=== PATIENT | male | born 1985 | race Caucasian/White ===

== ENCOUNTER 2016-05-25 10:34 | Inpatient (IN) | payer OTHER ==
[2016-05-25 13:05] VITALS: BMI 23.9
--- NOTE | 2016-05-25 14:20 | HP ---
CIWA Score - CIWA Score Nausea/Vomitin-Mild Nausea/No Vomiting Muscle Tremors: 4-Moderate,w/Arms Extend Anxiety: 3 Agitation: 4-Moderately Restless Paroxysmal Sweats: 3 Orientation: 0-Oriented Tacttile Disturbances: 0-None Auditory Disturbances: 0-None Visual Disturbances: 0-None Headache: 0-None Present CIWA-Ar Total Score: 15 Admission ROS BHS - HPI Chief Complaint: I am here to detox. Allergies/Adverse Reactions: Allergies Allergy/AdvReac Type Severity Reaction Status Date / Time No Known Allergies Allergy Verified 05/25/16 13:28 History of Present Illness: pt is a 31yr old male with a long history of benzodiazapine dependence seeking detox for treatment. Exam Limitations: No Limitations - Ebola screening Have you traveled outside of the country in the last 21 days: No Have you had contact with anyone from an Ebola affected area: No Have you been sick,other than usual withdrawal symptoms: No Do you have a fever: No - Review of Systems Constitutional: Chills, Night Sweats, Changes in sleep, Unintentional Wgt. Loss EENT: reports: Tearing, Nose Congestion Respiratory: reports: Cough, Productive cough Cardiac: reports: No Symptoms Reported GI: reports: Poor Appetite, Poor Fluid Intake : reports: No Symptoms Reported Musculoskeletal: reports: Back Pain Integumentary: reports: No Symptoms Reported Neuro: reports: Seizure (benzo related seizure a week ago.), Tingling, Tremors Endocrine: reports: Excessive Sweating, Flushing, Intolerance to Cold, Intolerance to Heat Hematology: reports: No Symptoms Reported Psychiatric: reports: Judgement Intact, Mood/Affect Appropiate, Orientated x3, Agitated, Anxious Other Systems: Reviewed and Negative Patient History - Patient Medical History Hx Anemia: No Hx Asthma: No Hx Chronic Obstructive Pulmonary Disease (COPD): No Hx Cancer: No Hx Cardiac Disorders: No Hx Congestive Heart Failure: No Hx Hypertension: No Hx Hypercholesterolemia: No Hx Pacemaker: No HX Cerebrovascular Accident: No Hx Seizures: Yes (xanax related seizures last in 06/21) Hx Dementia: No Hx Diabetes: No Hx Gastrointestinal Disorders: No Hx Liver Disease: No Hx Genitourinary Disorders: No Hx Sexually Transmitted Disorders: No Hx Renal Disease (ESRD): No Hx Thyroid Disease: No Hx Human Immunodeficiency Virus (HIV): No (negative) Hx Hepatitis C: No (negtive) Hx Depression: Yes Hx Suicide Attempt: No (denies) Hx Bipolar Disorder: Yes (Panic Disorder.) Hx Schizophrenia: No - Patient Surgical History Past Surgical History: Yes Hx Neurologic Surgery: No Hx Cataract Extraction: No Hx Cardiac Surgery: No Hx Lung Surgery: No Hx Breast Surgery: No Hx Breast Biopsy: No Hx Abdominal Surgery: No Hx Appendectomy: No Hx Cholecystectomy: No Hx Genitourinary Surgery: No Hx Section: No Hx Orthopedic Surgery: No Hx Hysterectomy: No Other Surgical History: right inguinal hernia repair in 2005, tonsillectomy Anesthesia Reaction: No - PPD History Previous Implant?: Yes Documented Results: Negative w/proof Implanted On Prior [facility] Admission?: Yes Date: 06/19/15 Results: 0 mm PPD to be Administered?: No - Reproductive History Patient is a Female of Child Bearing Age (11 -55 yrs old): No - Smoking Cessation Smoking history: Current every day smoker Have you smoked in the past 12 months: Yes Aproximately how many cigarettes per day: 20 Hx Chewing Tobacco Use: No Initiated information on smoking cessation: Yes 'Breaking Loose' booklet given: 05/25/16 - Substance & Tx. History Hx Alcohol Use: No Hx Substance Use: Yes Substance Use Type: Prescribed Hx Substance Use Treatment: Yes - Substances Abused Marijuana/Hashish Route: Smoking Frequency: Daily Amount used: 6 JOINTS Age of first use: 16 Date of Last Use: 05/25/16 KLONOPIN OR XANAX Route: Oral Frequency: Daily Amount used: 12-16MG Age of first use: 20 Date of Last Use: 05/24/16 Family Disease History - Family Disease History Family Disease History: CA: Mother (BREAST), Other: Father ( BRAIN ANEURYSM; ALCOHOL) Admission Physical Exam BHS - Vital Signs Vital Signs: Vital Signs - 24 hr 05/25/16 13:01 Temperature 98.1 F Pulse Rate 82 Respiratory 18 Rate Blood Pressure 104/74 - Physical General Appearance: Yes: Appropriately Dressed, Moderate Distress, Thin, Tremorous, Irritable, Sweating, Anxious HEENTM: Yes: Hearing grossly Normal, Normal Voice, Nasal Congestion Respiratory: Yes: Lungs Clear, Normal Breath Sounds Neck: Yes: No masses,lesions,Nodules Breast: Yes: Within Normal Limits Cardiology: Yes: Regular Rhythm, Regular Rate, S1, S2 Abdominal: Yes: Normal Bowel Sounds, Non Tender, Soft Genitourinary: Yes: Within Normal Limits Back: Yes: Normal Inspection Musculoskeletal: Yes: full range of Motion Extremities: Yes: Normal Capillary Refill, Normal Inspection, Non-Tender, Tremors Neurological: Yes: Fully Oriented, Alert, Normal Response Integumentary: Yes: Normal Color, Diaphoresis Lymphatic: Yes: Within Normal Limits - Diagnostic (1) Methadone maintenance therapy patient Current Visit: Yes Status: Chronic Comment: pt recieved methadone today with 90mg; dose verified. (2) Nicotine dependence Current Visit: Yes Status: Chronic Qualifiers: Nicotine product type: cigarettes Substance use status: uncomplicated Qualified Code(s): F17.210 - Nicotine dependence, cigarettes, uncomplicated (3) Uncomplicated sedative, hypnotic or anxiolytic withdrawal Current Visit: Yes Status: Chronic Cleared for Admission [facility] - Detox or Rehab [facility] Level of Care: Medically Managed Detox Regimen/Protocol: Valium [facility] Breath Alcohol Content Breath Alcohol Content: 0 Urine Drug Screen - Results Drug Screen Negative: No Urine Drug Screen Results: THC-Marijuana, OPI-Opiates, BZO-Benzodiazepines, TCA- Tricyclic Antidepress, OXY-Oxycodone
[2016-05-25] MEDS ORDERED: P-EPHED 60MG/TRIPROLIDI 2.5MG TABLET PO PRN (14:30)
[2016-05-25] MEDS ORDERED: MAG HYDROX/AL HYDROX/SIMETH 30 ML UNIT-DOSE CUP PO PRN (14:30)
[2016-05-25] MEDS ORDERED: NICOTINE POLACRILEX 4 MG GUM BUC PRN (14:30)
[2016-05-25] MEDS ORDERED: ACETAMINOPHEN 325 MG TABLET (FP) PO PRN (14:30)
[2016-05-25] MEDS ORDERED: LOPERAMIDE HCL 2 MG CAPSULE PO PRN (14:30)
[2016-05-25] MEDS ORDERED: diphenhydrAMINE HCL 50 MG CAPSULE PO PRN (14:30)
[2016-05-25] MEDS ORDERED: MENTHOL/PHENOL 1 EACH UD MM PRN (14:30)
[2016-05-25] MEDS ORDERED: MAGNESIUM HYDROX 2400MG/30ML ORAL SUSPENSION 30 ML CUP PO PRN (14:30)
[2016-05-25] MEDS ORDERED: MAGNESIUM CITRATE 300 ML BOTTLE PO PRN (14:30)
[2016-05-25] MEDS ORDERED: hydrOXYzine PAMOATE 50 MG CAPSULE (FP) PO PRN (14:30)
[2016-05-25] MEDS ORDERED: IBUPROFEN 400 MG TABLET (FP) PO PRN (14:30)
[2016-05-25] MEDS ORDERED: guaiFENesin/D-METHORPHAN HB 10 ML UNIT-DOSE CUPS PO PRN (14:30)
[2016-05-25] MEDS ORDERED: diazePAM 5 MG TABLET PO ONE (15:06)
[2016-05-25] MEDS: diazePAM 5 MG TABLET PO SCH ×2 (17:25→22:16)
[2016-05-25] MEDS: THIAMINE HCL 100 MG TABLET (FP) PO SCH (22:16)
[2016-05-25 22:38] LABS: URINE APPEARANCE CLEAR; URINE BILIRUBIN NEGATIVE (NEGATIVE); URINE BLOOD NEGATIVE (NEGATIVE); URINE COLOR AMBER; URINE GLUCOSE (UA) NEGATIVE (NEGATIVE); URINE KETONE NEGATIVE (NEGATIVE); URINE NITRITE NEGATIVE (NEGATIVE); URINE PROTEIN NEGATIVE (NEGATIVE); URINE UROBILINOGEN 2.0 E.U/dl E.U./dl (0.2-1.0)
[2016-05-25 22:41] LABS: URINE LEUK ESTERASE 1+ (NEGATIVE)
[2016-05-25 22:56] LABS: URINE MUCUS RARE; URINE RBC 16 /hpf (0-3); URINE WBC 4 /hpf (3-5)
[2016-05-26] MEDS ORDERED: METHADONE HCL 10 MG TABLET ONE (05:23)
[2016-05-26] MEDS ORDERED: METHADONE HCL 40 MG DISPERSABLE TABLET ONE (05:24)
[2016-05-26] MEDS: METHADONE 80 MG, METHADONE 10 MG PO SCH (05:43)
[2016-05-26] MEDS: diazePAM 5 MG TABLET PO SCH ×3 (05:43→22:04)
[2016-05-26] MEDS ORDERED: METHADONE HCL 10 MG TABLET PO SCH (06:00)
--- NOTE | 2016-05-26 08:40 | CONSULT ---
[facility] Psychiatric Consult - Data Date of interview: 05/26/16 Admission source: Self-referred Identifying data: Mr Simental is a 31 years old single male, unemployed , living with his grandparents seeking detox treatment for benzodiazepine( Klonopin & Xanax) and marijuana Substance Abuse History: - Smoking Cessation. Smoking history: Current every day smoker. Have you smoked in the past 12 months: Yes. Aproximately how many cigarettes per day: 20. Hx Chewing Tobacco Use: No. Initiated information on smoking cessation: Yes. 'Breaking Loose' booklet given: 05/25/16. - Substance & Tx. History. Hx Alcohol Use: No. Hx Substance Use: Yes. Substance Use Type : Prescribed. Hx Substance Use Treatment: Yes. - Substances Abused. Marijuana/Hashish. Route: Smoking. Frequency: Daily. Amount used: 6 JOINTS. Age of first use: 16. Date of Last Use: 05/25/16. KLONOPIN OR XANAX. Route : Oral. Frequency: Daily. Amount used: 12-16MG. Age of first use: 20. Date of Last Use: 05/24/16 Medical History: Significant for history of Sedative-Induced seizure, S/P right Inguinal Hernia repair in 2005 and S/P Tonsillectomy. Patient is on methadone 90 mg po daily. Smokes cigarettes 1ppd Psychiatric History: Reports being diagnosed with Bipolar Disorder at age 20 and has had 3 previous psychiatric hospitalizations. Most recent one was in 2011 at [facility]. Reports being prescribed Cymbalta 30mg po daily & Xanax 2 mg po TID when he was receiving psychiatric services in [place] before moving to [place] in early 2015. Since being in [place], he has seen psychiatrist during his 3 admissions to this facility in Jun, Dec & Feb 2016 and at [facility] in [facility] for outpatient treatment fro Jun-November 2015. In this facility, he was prescribed Ambien only during his Jun 2015 admission. Claims he was only receiving psychotherapy while attending [facility]. At present, reports feeling anxious and experiencing difficulty to sleep Mental Status Exam - Mental Status Exam Alert and Oriented to: Time, Place, Person Cognitive Function: Fair Patient Appearance: Well Groomed Mood: Anxious Affect: Appropriate Patient Behavior: Cooperative Speech Pattern: Clear Voice Loudness: Normal Thought Process: Intact Thought Disorder: Present Hallucinations: Denies Suicidal Ideation: Denies Homicidal Ideation: Denies Insight/Judgement: Poor Sleep: Poorly Appetite: Good Muscle strength/Tone: Normal Gait/Station: Normal Psychiatric Findings - Problem List ([place] 1, 2,3) (1) Bipolar disorder Current Visit: No Status: Suspected Qualifiers: Active/Remission status: in full remission Most recent bipolar episode type: mixed Qualified Code(s): F31.78 - Bipolar disorder, in full remission, most recent episode mixed (2) Uncomplicated sedative, hypnotic or anxiolytic withdrawal Current Visit: Yes Status: Chronic (3) Cannabis dependence, uncomplicated Current Visit: No Status: Chronic (4) Opioid dependence on agonist therapy Current Visit: Yes Status: Acute (5) Nicotine dependence Current Visit: Yes Status: Chronic Qualifiers: Nicotine product type: cigarettes Substance use status: uncomplicated Qualified Code(s): F17.210 - Nicotine dependence, cigarettes, uncomplicated - Initial Treatment Plan Initial Treatment Plan: 1) Start Ambien 10 mg po HS prn for insomnia. 2) Continue detox protocol
[2016-05-26] MEDS: PRENATAL VITAMINS W/ FOLIC ACID TABLET (FP) PO SCH (10:30)
[2016-05-26] MEDS: NICOTINE 21 MG/24 HOURS TOPICAL PATCH TD SCH (10:31)
--- NOTE | 2016-05-26 10:39 | PN ---
BHS COWS - Scale Resting Pulse: 0= MI 80 or Below Sweatin=Flushed/Facial Moisture Restless Observation: 5= Unable to Sit Still Pupil Size: 1= Pupils >than Normal Bone or Joint Aches: 2= Severe Diffuse Aches Runny Nose/ Eye Tearin= Nasal Congestion GI Upset > 30mins: 2= Nausea/Diarrhea Tremor Observation of Outstretched Hands: 2= Slight Tremor Visible Yawning Observation: 0= None Anxiety or Irritability: 4=Extreme Anxiety Goose Flesh Skin: 0=Smooth Skin COWS Score: 19 BHS Progress Note (SOAP) Subjective: anxiety, restlessness, interrupted sleep, muscle aches and pain Objective: 05/26/16 10:38 Vital Signs 05/26/16 05/26/16 03:30 06:26 Temperature 96.3 F L Pulse Rate 59 L Respiratory 20 16 Rate Blood Pressure 95/65 Laboratory Last Values Urine Color Zainab 05/25/16 21:30 Urine Appearance Clear 05/25/16 21:30 Urine pH 5.0 (5.0-8.0) 05/25/16 21:30 Ur Specific [place] 1.030 (1.001-1.035) 05/25/16 21:30 Urine Protein Negative (NEGATIVE) 05/25/16 21:30 Urine Glucose (UA) Negative (NEGATIVE) 05/25/16 21:30 Urine Ketones Negative (NEGATIVE) 05/25/16 21:30 Urine Blood Negative (NEGATIVE) 05/25/16 21:30 Urine Nitrite Negative (NEGATIVE) 05/25/16 21:30 Urine Bilirubin Negative (NEGATIVE) 05/25/16 21:30 Urine Urobilinogen 2.0 e.u/dl E.U./dl (0.2-1.0) 05/25/16 21:30 Ur Leukocyte Esterase 1+ (NEGATIVE) H 05/25/16 21:30 Urine RBC 16 /hpf (0-3) 05/25/16 21:30 Urine WBC 4 /hpf (3-5) 05/25/16 21:30 Ur Epithelial Cells Rare /hpf (FEW) 05/25/16 21:30 Urine Mucus Rare 05/25/16 21:30 UA noted, Labs pending Assessment: 05/26/16 10:39 withdrawal sx Plan: continue detox
[2016-05-26 11:05] LABS: MCH 29.3 pg (25.7-33.7); MCHC 33.5 g/dl (32.0-35.9); MEAN CELL VOLUME 87.6 fl (80-96); MEAN PLT VOLUME 11.1 fl (7.5-11.1); PLATELET COUNT 219 K/MM3 (134-434); RDW 12.9 % (11.9-15.9); WHITE BLOOD COUNT 8.2 K/mm3 (4.0-10.0)
[2016-05-26 11:40] LABS: ALBUMIN 3.7 g/dl (3.4-5.0); ANION GAP 7 (8-16); CALCIUM 8.4 mg/dL (8.5-10.1); CO2 27 mmol/L (21-32); GLUCOSE,RANDOM 97 mg/dL (74-106)
[2016-05-26 11:44] LABS: ALK PHOS 88 U/L (45-117); BILIRUBIN,TOTAL 0.2 mg/dL (0.2-1.0); SGOT/AST 31 U/L (15-37); SGPT/ALT 62 U/L (12-78); TOT PROT 6.9 g/dl (6.4-8.2)
[2016-05-26] MEDS: diazePAM 5 MG TABLET PO PRN (20:00)
[2016-05-26] MEDS: THIAMINE HCL 100 MG TABLET (FP) PO SCH (22:03)
[2016-05-26] MEDS: ZOLPIDEM TARTRATE 5 MG TABLET PO PRN (22:06)
[2016-05-27] MEDS ORDERED: METHADONE HCL 10 MG TABLET ONE (03:26)
[2016-05-27] MEDS ORDERED: METHADONE HCL 40 MG DISPERSABLE TABLET ONE (03:26)
[2016-05-27] MEDS: METHADONE 80 MG, METHADONE 10 MG PO SCH (05:55)
[2016-05-27] MEDS: diazePAM 5 MG TABLET PO PRN ×3 (05:58→20:21)
[2016-05-27] MEDS: PRENATAL VITAMINS W/ FOLIC ACID TABLET (FP) PO SCH (10:30)
[2016-05-27] MEDS: NICOTINE 21 MG/24 HOURS TOPICAL PATCH TD SCH (10:30)
[2016-05-27] MEDS: diazePAM 5 MG TABLET PO SCH ×2 (10:30→22:19)
--- NOTE | 2016-05-27 12:42 | PN ---
S CIWA - CIWA Score Nausea/Vomitin-Mild Nausea/No Vomiting Muscle Tremors: 4-Moderate,w/Arms Extend Anxiety: 4-Mod. Anxious/Guarded Agitation: 3 Paroxysmal Sweats: No Perspiration Orientation: 0-Oriented Tacttile Disturbances: 1-Very Mild Itch/Numbness Auditory Disturbances: 0-None Visual Disturbances: 0-None Headache: 3-Moderate CIWA-Ar Total Score: 16 BHS Progress Note (SOAP) Subjective: Anxious, restless, sweating, tremor, interrupted sleep (ambien/benadryl ineffective, wants to see psychiatrist for anxiety) Objective: 05/27/16 12:37 Last Vital Signs Temp Pulse Resp BP Pulse Ox 96 F L 58 L 20 116/64 05/27/16 11:28 05/27/16 11:28 05/27/16 11:28 05/27/16 11:28 Laboratory Tests 05/25/16 05/26/16 05/26/16 21:30 06:10 06:10 WBC 8.2 RBC 4.20 Hgb 12.3 Hct 36.8 MCV 87.6 MCHC 33.5 RDW 12.9 Plt Count 219 MPV 11.1 Sodium 142 Potassium 4.1 Chloride 108 H Carbon Dioxide 27 Anion Gap 7 L BUN 10 Creatinine 1.0 D Creat Clearance w eGFR > 60 Random Glucose 97 Calcium 8.4 L Total Bilirubin 0.2 AST 31 D ALT 62 D Alkaline Phosphatase 88 D Total Protein 6.9 Albumin 3.7 Urine Color Zainab Urine Appearance Clear Urine pH 5.0 Ur Specific [place] 1.030 Urine Protein Negative Urine Glucose (UA) Negative Urine Ketones Negative Urine Blood Negative Urine Nitrite Negative Urine Bilirubin Negative Urine Urobilinogen 2.0 e.u/dl Ur Leukocyte Esterase 1+ H Urine RBC 16 Urine WBC 4 Ur Epithelial Cells Rare Urine Mucus Rare Labs noted: UA abnormal Assessment: 05/27/16 12:41 Withdrawal symptoms Anxiety/interrupted sleep Noted with abnormal UA Plan: Continue detox, encouraged to drink lots of water Anxiety/interrupted sleep: psychiatrist consult Abnormal UA: repeat UA
[2016-05-27] MEDS: ZOLPIDEM TARTRATE 5 MG TABLET PO PRN (22:19)
[2016-05-27] MEDS: THIAMINE HCL 100 MG TABLET (FP) PO SCH (22:19)
[2016-05-28] MEDS ORDERED: METHADONE HCL 10 MG TABLET ONE (03:27)
[2016-05-28] MEDS ORDERED: METHADONE HCL 40 MG DISPERSABLE TABLET ONE (03:28)
[2016-05-28] MEDS: diazePAM 5 MG TABLET PO PRN (05:56)
[2016-05-28] MEDS: METHADONE 80 MG, METHADONE 10 MG PO SCH (05:56)
[2016-05-28] MEDS: PRENATAL VITAMINS W/ FOLIC ACID TABLET (FP) PO SCH (10:24)
[2016-05-28] MEDS: diazePAM 5 MG TABLET PO SCH ×2 (10:24→22:22)
[2016-05-28] MEDS: NICOTINE 21 MG/24 HOURS TOPICAL PATCH TD SCH (10:24)
--- NOTE | 2016-05-28 11:15 | PN ---
BHS Progress Note (SOAP) Subjective: nausea, sweats, interrupted sleep, anxiety, tremors Objective: 05/28/16 11:14 Vital Signs - 8 hr 05/28/16 05/28/16 05/28/16 03:41 06:11 09:23 Temperature 96.1 F L 96.7 F L Pulse Rate 50 L 61 Respiratory 18 18 16 Rate Blood Pressure 99/72 122/86 Laboratory Tests 05/25/16 05/26/16 05/26/16 21:30 06:10 06:10 WBC 8.2 RBC 4.20 Hgb 12.3 Hct 36.8 MCV 87.6 MCHC 33.5 RDW 12.9 Plt Count 219 MPV 11.1 Sodium 142 Potassium 4.1 Chloride 108 H Carbon Dioxide 27 Anion Gap 7 L BUN 10 Creatinine 1.0 D Creat Clearance w eGFR > 60 Random Glucose 97 Calcium 8.4 L Total Bilirubin 0.2 AST 31 D ALT 62 D Alkaline Phosphatase 88 D Total Protein 6.9 Albumin 3.7 Urine Color Zainab Urine Appearance Clear Urine pH 5.0 Ur Specific [place] 1.030 Urine Protein Negative Urine Glucose (UA) Negative Urine Ketones Negative Urine Blood Negative Urine Nitrite Negative Urine Bilirubin Negative Urine Urobilinogen 2.0 e.u/dl Ur Leukocyte Esterase 1+ H Urine RBC 16 Urine WBC 4 Ur Epithelial Cells Rare Urine Mucus Rare RPR Titer 05/26/16 06:10 WBC RBC Hgb Hct MCV MCHC RDW Plt Count MPV Sodium Potassium Chloride Carbon Dioxide Anion Gap BUN Creatinine Creat Clearance w eGFR Random Glucose Calcium Total Bilirubin AST ALT Alkaline Phosphatase Total Protein Albumin Urine Color Urine Appearance Urine pH Ur Specific [place] Urine Protein Urine Glucose (UA) Urine Ketones Urine Blood Urine Nitrite Urine Bilirubin Urine Urobilinogen Ur Leukocyte Esterase Urine RBC Urine WBC Ur Epithelial Cells Urine Mucus RPR Titer Nonreactive Assessment: 05/28/16 11:15 withdrawal sx Plan: cont detox
--- NOTE | 2016-05-28 12:32 | EKG ---
Test Reason : Blood Pressure : / mmHG Vent. Rate : 060 BPM Atrial Rate : 060 BPM P-R Int : 146 ms QRS Dur : 088 ms QT Int : 430 ms P-R-T Axes : 027 040 019 degrees QTc Int : 430 ms NORMAL SINUS RHYTHM NORMAL ECG NO PREVIOUS ECGS AVAILABLE Confirmed by ANIYA WOOD MD ([id number]) on 05/28/2016 12:32:07 PM Referred By: Confirmed By:ANIYA WOOD MD
[2016-05-28] MEDS: THIAMINE HCL 100 MG TABLET (FP) PO SCH (22:22)
[2016-05-28] MEDS: ZOLPIDEM TARTRATE 5 MG TABLET PO PRN (22:22)
[2016-05-29] MEDS ORDERED: METHADONE HCL 10 MG TABLET ONE (03:20)
[2016-05-29] MEDS ORDERED: METHADONE HCL 40 MG DISPERSABLE TABLET ONE (03:21)
[2016-05-29] MEDS: METHADONE 80 MG, METHADONE 10 MG PO SCH (05:40)
[2016-05-29 06:35] VITALS: BP 126/70; PULSE 69; TEMP 96.6
--- NOTE | 2016-05-29 08:54 | DS ---
[facility] Detox Discharge Summary Admission Date: 05/25/16 Discharge Date: 05/29/16 - History Present History: Cannabis Dependence, Opioid Dependence, Sedative Dependence, MMTP Pertinent Past History: panic do, nicotine dependence - Physical Exam Results Vital Signs: Vital Signs Temperature 96.6 F L 05/29/16 06:35 Pulse Rate 69 05/29/16 06:35 Respiratory Rate 18 05/29/16 06:35 Blood Pressure 126/70 05/29/16 06:35 O2 Sat by Pulse Oximetry (%) Pertinent Admission Physical Exam Findings: withdrawal sx - Treatment Hospital Course: Detox Protocol Followed, Detoxed Safely, Responded well, Discharged Condition Good, Rehab Referral Accepted Patient has Accepted a [facility] Referral [facility] - Medication Discharge Medications: Ambulatory Orders NK [No Known Home Medication] 12/29/15 - Diagnosis (1) Opioid dependence on agonist therapy Status: Chronic (2) Cannabis dependence, uncomplicated Status: Chronic (3) Drug-induced mood disorder Status: Acute (4) Nicotine dependence Status: Chronic Qualifiers: Nicotine product type: cigarettes Substance use status: uncomplicated Qualified Code(s): F17.210 - Nicotine dependence, cigarettes, uncomplicated (5) Panic disorder Status: Chronic (6) Uncomplicated sedative, hypnotic or anxiolytic withdrawal Status: Chronic (7) Bipolar disorder Status: Suspected Qualifiers: Active/Remission status: in full remission Most recent bipolar episode type: mixed Qualified Code(s): F31.78 - Bipolar disorder, in full remission, most recent episode mixed - AMA Did Patient Leave Against Medical Advice: No
[2016-05-29] MEDS ORDERED: diazePAM 5 MG TABLET PO SCH (10:00)
== END 2016-05-29 06:30 | disposition home or self-care (01) | DRG 773 ==
LOC: YASAS 10:34 → Y3N 15:01
PROVIDERS: ADMIT Internal Medicine; ATTEND Internal Medicine
PROC: HZ2ZZZZ Detoxification Services for Substance Abuse Treatment (ICD-10-PCS; principal; 2016-05-25)
DX: F13.230 Sedative, hypnotic or anxiolytic dependence with withdrawal, uncomplicated (principal); F11.20 Opioid dependence, uncomplicated; F12.20 Cannabis dependence, uncomplicated; F17.210 Nicotine dependence, cigarettes, uncomplicated; F19.24 Other psychoactive substance dependence with psychoactive substance-induced mood disorder; F41.0 Panic disorder [episodic paroxysmal anxiety]; F41.9 Anxiety disorder, unspecified; F31.78 Bipolar disorder, in full remission, most recent episode mixed; Z86.69 Personal history of other diseases of the nervous system and sense organs
CPT/HCPCS: 36415; 80053; 81003; 81015; 85027; 86593; 93005; 93010

== ENCOUNTER 2016-10-15 09:08 | Inpatient (IN) | payer OTHER ==
[2016-10-15 11:44] VITALS: BMI 23.0
--- NOTE | 2016-10-15 13:00 | HP ---
CIWA Score - CIWA Score Nausea/Vomitin-No Nausea/No Vomiting Muscle Tremors: 4-Moderate,w/Arms Extend Anxiety: 3 Agitation: 4-Moderately Restless Paroxysmal Sweats: 3 Orientation: 0-Oriented Tacttile Disturbances: 0-None Auditory Disturbances: 0-None Visual Disturbances: 0-None Headache: 0-None Present CIWA-Ar Total Score: 14 Admission ROS BHS - HPI Chief Complaint: I need help with the benzo and alcohol problem. Allergies/Adverse Reactions: Allergies Allergy/AdvReac Type Severity Reaction Status Date / Time No Known Allergies Allergy Verified 10/15/16 12:36 History of Present Illness: pt is a 31yr old male with a history of alcohol and xanax dependence seeking detox for treatment. pt is also on a mmtp program last dose of methadone with 80mg, pt has an empty bottle in his possession. pt methadone verified will be dosed today with 80mg. Exam Limitations: No Limitations - Ebola screening Have you traveled outside of the country in the last 21 days: No Have you had contact with anyone from an Ebola affected area: No Have you been sick,other than usual withdrawal symptoms: No Do you have a fever: No - Review of Systems Constitutional: Chills, Diaphoresis, Night Sweats EENT: reports: Blurred Vision Respiratory: reports: No Symptoms reported Cardiac: reports: Lightheadedness GI: reports: Nausea, Poor Appetite, Poor Fluid Intake : reports: No Symptoms Reported Musculoskeletal: reports: No Symptoms Reported Integumentary: reports: Flushing, Sweating Neuro: reports: Seizure (last seizure 07/2016), Tingling, Tremors Endocrine: reports: Excessive Sweating, Flushing, Intolerance to Cold, Intolerance to Heat Hematology: reports: No Symptoms Reported, Anemia (borderline.) Psychiatric: reports: Judgement Intact, Mood/Affect Appropiate, Orientated x3, Agitated, Anxious Other Systems: Reviewed and Negative Patient History - Patient Medical History Hx Anemia: Yes (boarderline ) Hx Asthma: No Hx Chronic Obstructive Pulmonary Disease (COPD): No Hx Cancer: No Hx Cardiac Disorders: No Hx Congestive Heart Failure: No Hx Hypertension: No Hx Hypercholesterolemia: No Hx Pacemaker: No HX Cerebrovascular Accident: No Hx Seizures: No Hx Dementia: No Hx Diabetes: No Hx Gastrointestinal Disorders: No Hx Liver Disease: No Hx Genitourinary Disorders: No Hx Sexually Transmitted Disorders: No Hx Renal Disease (ESRD): No Hx Thyroid Disease: No Hx Human Immunodeficiency Virus (HIV): No (negative) Hx Hepatitis C: No (negtive) Hx Depression: No Hx Suicide Attempt: No Hx Bipolar Disorder: Yes (Panic Disorder.) Hx Schizophrenia: No - Patient Surgical History Past Surgical History: Yes Hx Neurologic Surgery: No Hx Cataract Extraction: No Hx Cardiac Surgery: No Hx Lung Surgery: No Hx Breast Surgery: No Hx Breast Biopsy: No Hx Abdominal Surgery: No Hx Appendectomy: No Hx Cholecystectomy: No Hx Genitourinary Surgery: No Hx Section: No Hx Orthopedic Surgery: No Hx Hysterectomy: No Other Surgical History: right inguinal hernia repair in 2005, tonsillectomy Anesthesia Reaction: No - PPD History Previous Implant?: Yes Documented Results: Negative w/proof Implanted On Prior [facility] Admission?: Yes Date: 06/19/15 Results: 0 mm PPD to be Administered?: Yes - Reproductive History Patient is a Female of Child Bearing Age (11 -55 yrs old): No - Smoking Cessation Smoking history: Current every day smoker Have you smoked in the past 12 months: Yes Aproximately how many cigarettes per day: 10 Hx Chewing Tobacco Use: No Initiated information on smoking cessation: Yes 'Breaking Loose' booklet given: 10/15/16 - Substance & Tx. History Hx Alcohol Use: Yes Hx Substance Use: Yes Substance Use Type: Alcohol, Tranquilizers Hx Substance Use Treatment: Yes ([facility] detox 05/2016. ) - Substances Abused Xanax Route: Oral Frequency: Daily Amount used: 4-8 mg. Age of first use: 22 Date of Last Use: 10/14/16 Alcohol-beer Route: Smoking Frequency: 3-6 times per week Amount used: 1-6 pk. Age of first use: 16 Date of Last Use: 10/15/16 Marijuana Route: Smoking Frequency: 1-3 times last 30 days Amount used: $5 Age of first use: 16 Date of Last Use: 10/14/16 Family Disease History - Family Disease History Family Disease History: CA: Mother (BREAST), Other: Father ( BRAIN ANEURYSM; ALCOHOL) Admission Physical Exam BHS - Vital Signs Vital Signs: Vital Signs - 24 hr 10/15/16 11:38 Temperature 96.8 F L Pulse Rate 86 Respiratory 20 Rate Blood Pressure 105/65 - Physical General Appearance: Yes: Appropriately Dressed, Moderate Distress, Thin, Tremorous, Irritable, Sweating, Anxious HEENTM: Yes: Normal Voice Respiratory: Yes: Lungs Clear, Normal Breath Sounds, No Respiratory Distress Neck: Yes: No masses,lesions,Nodules Breast: Yes: Within Normal Limits Cardiology: Yes: Regular Rhythm, Regular Rate, S1, S2 Abdominal: Yes: Normal Bowel Sounds, Non Tender, Soft Genitourinary: Yes: Within Normal Limits Back: Yes: Normal Inspection Extremities: Yes: Normal Capillary Refill, Tremors Neurological: Yes: Fully Oriented, Alert, Normal Response Integumentary: Yes: Normal Color, Diaphoresis Lymphatic: Yes: Within Normal Limits - Diagnostic (1) Cannabis dependence, uncomplicated Current Visit: Yes Status: Chronic (2) Nicotine dependence Current Visit: Yes Status: Chronic Qualifiers: Nicotine product type: cigarettes Substance use status: uncomplicated Qualified Code(s): F17.210 - Nicotine dependence, cigarettes, uncomplicated (3) Uncomplicated sedative, hypnotic or anxiolytic withdrawal Current Visit: Yes Status: Chronic (4) Alcohol dependence with uncomplicated withdrawal Current Visit: Yes Status: Chronic (5) Methadone maintenance therapy patient Current Visit: Yes Status: Chronic Comment: pt now receives 80mg of methadone. dose verified. last dose received yesterday 10/14/16 (6) Drug-induced seizure Current Visit: Yes Status: Suspected Cleared for Admission [facility] - Detox or Rehab [facility] Level of Care: Medically Managed Detox Regimen/Protocol: Valium [facility] Breath Alcohol Content Breath Alcohol Content: 0.116 Urine Drug Screen - Results Drug Screen Negative: No Urine Drug Screen Results: THC-Marijuana, OPI-Opiates, BZO-Benzodiazepines, MTD- Methadone
[2016-10-15] MEDS ORDERED: NICOTINE POLACRILEX 4 MG GUM BC PRN (13:08)
[2016-10-15] MEDS ORDERED: LOPERAMIDE HCL 2 MG CAPSULE PO PRN (13:08)
[2016-10-15] MEDS ORDERED: P-EPHED 60MG/TRIPROLIDI 2.5MG TABLET PO PRN (13:08)
[2016-10-15] MEDS ORDERED: ACETAMINOPHEN 325 MG TABLET (FP) PO PRN (13:08)
[2016-10-15] MEDS ORDERED: hydrOXYzine PAMOATE 50 MG CAPSULE (FP) PO PRN (13:08)
[2016-10-15] MEDS ORDERED: MAGNESIUM HYDROX 2400MG/30ML ORAL SUSPENSION 30 ML CUP PO PRN (13:08)
[2016-10-15] MEDS ORDERED: MAGNESIUM CITRATE 300 ML BOTTLE PO PRN (13:08)
[2016-10-15] MEDS ORDERED: guaiFENesin/D-METHORPHAN HB 10 ML UNIT-DOSE CUPS PO PRN (13:08)
[2016-10-15] MEDS ORDERED: diphenhydrAMINE HCL 50 MG CAPSULE PO PRN (13:08)
[2016-10-15] MEDS ORDERED: IBUPROFEN 400 MG TABLET (FP) PO PRN (13:08)
[2016-10-15] MEDS ORDERED: MAG HYDROX/AL HYDROX/SIMETH 30 ML UNIT-DOSE CUP PO PRN (13:08)
[2016-10-15] MEDS ORDERED: MENTHOL/PHENOL 1 EACH UD MM PRN (13:08)
[2016-10-15] MEDS: diazePAM 5 MG TABLET PO SCH ×2 (14:00→22:20)
[2016-10-15] MEDS ORDERED: diazePAM 5 MG TABLET PO ONE (14:15)
[2016-10-15] MEDS ORDERED: METHADONE HCL 40 MG DISPERSABLE TABLET PO ONE (14:15)
--- NOTE | 2016-10-15 15:52 | CONSULT ---
[facility] Psychiatric Consult - Data Date of interview: 10/15/16 Admission source: [facility] Identifying data: This is 31 years old male with psychiatric hospitalization history, history of Bipolar Disorder intoxicated with: Alcohol, Cannabis, Opioids, Xanax, Nicotine Substance Abuse History: - Smoking Cessation. Smoking history: Current every day smoker. Have you smoked in the past 12 months: Yes. Aproximately how many cigarettes per day: 10. Hx Chewing Tobacco Use: No. Initiated information on smoking cessation: Yes. 'Breaking Loose' booklet given: 10/15/16. - Substance & Tx. History. Hx Alcohol Use: Yes. Hx Substance Use: Yes. Substance Use Type : Alcohol, Tranquilizers. Hx Substance Use Treatment: Yes ([facility] detox 2016. ). - Substances Abused. Xanax. Route: Oral. Frequency: Daily. Amount used: 4-8 mg. Age of first use: 22. Date of Last Use: 10/14/16. Alcohol-beer. Route: Smoking. Frequency: 3-6 times per week. Amount used: 1- 6 pk. Age of first use: 16. Date of Last Use: 10/15/16. Marijuana. Route : Smoking. Frequency: 1-3 times last 30 days. Amount used: $5. Age of first use: 16. Date of Last Use: 10/14/16 Medical History: MMTP history. Seizure history Psychiatric History: Patient reports to carry [place] rDisorder with most recent psychiatric admission on more then 10 years ago, reports no medications taking prior to admission Physical/Sexual Abuse/Trauma History: Denies Additional Comment: Observation. Detox Unit Care Protocol Mental Status Exam - Mental Status Exam Alert and Oriented to: Person Cognitive Function: Fair Patient Appearance: Unkempt Mood: Sad Affect: Flat Patient Behavior: Sedated Speech Pattern: Delayed Voice Loudness: Mildly Soft/Quiet Thought Process: Circumstantial, Goal Oriented Thought Disorder: Being Controlled Hallucinations: Denies Suicidal Ideation: Denies Homicidal Ideation: Denies Insight/Judgement: Fair Sleep: Difficulty falling asleep Appetite: Fair Muscle strength/Tone: Mild Hypotonicity Gait/Station: Shuffling Additional Comments: Observation. Detox Unit Care Protocol Psychiatric Findings - Problem List ([place] 1, 2,3) (1) Alcohol dependence with uncomplicated withdrawal Current Visit: Yes Status: Chronic (2) Cannabis dependence, uncomplicated Current Visit: Yes Status: Chronic (3) Methadone maintenance therapy patient Current Visit: Yes Status: Chronic Comment: pt now receives 80mg of methadone. dose verified. last dose received yesterday 10/14/16 (4) Nicotine dependence Current Visit: Yes Status: Chronic Qualifiers: Nicotine product type: cigarettes Substance use status: uncomplicated Qualified Code(s): F17.210 - Nicotine dependence, cigarettes, uncomplicated (5) Uncomplicated sedative, hypnotic or anxiolytic withdrawal Current Visit: Yes Status: Chronic (6) Drug-induced seizure Current Visit: Yes Status: Suspected (7) Drug-induced mood disorder Current Visit: No Status: Acute (8) Opioid dependence on agonist therapy Current Visit: No Status: Chronic (9) Panic disorder Current Visit: No Status: Chronic (10) Bipolar disorder Current Visit: No Status: Suspected Qualifiers: Active/Remission status: in full remission Most recent bipolar episode type: mixed Qualified Code(s): F31.78 - Bipolar disorder, in full remission, most recent episode mixed - Initial Treatment Plan Initial Treatment Plan: Observation. Detox Unit Care Protocol
[2016-10-15 17:36] LABS: URINE APPEARANCE CLEAR; URINE BILIRUBIN NEGATIVE (NEGATIVE); URINE BLOOD NEGATIVE (NEGATIVE); URINE COLOR YELLOW; URINE GLUCOSE (UA) NEGATIVE (NEGATIVE); URINE KETONE NEGATIVE (NEGATIVE); URINE NITRITE NEGATIVE (NEGATIVE); URINE PROTEIN NEGATIVE (NEGATIVE); URINE UROBILINOGEN NEGATIVE E.U./dl (0.2-1.0)
[2016-10-15 18:28] LABS: URINE LEUK ESTERASE 1+ (NEGATIVE)
[2016-10-15 18:30] LABS: URINE RBC 2 /hpf (0-3); URINE WBC 3 /hpf (3-5)
[2016-10-15 18:31] LABS: URINE MUCUS FEW
[2016-10-15] MEDS: THIAMINE HCL 100 MG TABLET (FP) PO SCH (22:20)
[2016-10-16] MEDS: METHADONE HCL 40 MG DISPERSABLE TABLET PO SCH (05:28)
[2016-10-16] MEDS: diazePAM 5 MG TABLET PO SCH ×3 (05:29→22:34)
[2016-10-16] MEDS ORDERED: METHADONE HCL 40 MG DISPERSABLE TABLET PO SCH (06:00)
[2016-10-16 09:50] LABS: MCH 29.8 pg (25.7-33.7); MCHC 33.4 g/dl (32.0-35.9); MEAN CELL VOLUME 89.2 fl (80-96); PLATELET COUNT 233 K/MM3 (134-434); RDW 13.6 % (11.9-15.9); WHITE BLOOD COUNT 9.8 K/mm3 (4.0-10.0)
--- NOTE | 2016-10-16 10:02 | PN ---
S CIWA - CIWA Score Nausea/Vomitin Muscle Tremors: 3 Anxiety: 3 Agitation: 3 Paroxysmal Sweats: 1-Minimal Palms Moist Orientation: 0-Oriented Tacttile Disturbances: 1-Very Mild Itch/Numbness Auditory Disturbances: 1-Very Mild Visual Disturbances: 1-Very Mild Sensitivity Headache: 2-Mild CIWA-Ar Total Score: 18 BHS Progress Note (SOAP) Subjective: ALERT,IRRITABLE,ANXIOUS,INTERRUPTED SLEEP,TREMOR,PAIN IN THE BODY Objective: 10/16/16 10:00 Vital Signs Temperature 97.3 F L 10/16/16 09:34 Pulse Rate 67 10/16/16 09:34 Respiratory Rate 18 10/16/16 09:34 Blood Pressure 137/71 10/16/16 09:34 O2 Sat by Pulse Oximetry (%) EKG NSR,NORMAL ECG Laboratory Last Values Urine Color Yellow 10/15/16 15:00 Urine Appearance Clear 10/15/16 15:00 Urine pH 5.0 (5.0-8.0) 10/15/16 15:00 Ur Specific [place] 1.020 (1.005-1.025) 10/15/16 15:00 Urine Protein Negative (NEGATIVE) 10/15/16 15:00 Urine Glucose (UA) Negative (NEGATIVE) 10/15/16 15:00 Urine Ketones Negative (NEGATIVE) 10/15/16 15:00 Urine Blood Negative (NEGATIVE) 10/15/16 15:00 Urine Nitrite Negative (NEGATIVE) 10/15/16 15:00 Urine Bilirubin Negative (NEGATIVE) 10/15/16 15:00 Urine Urobilinogen Negative E.U./dl (0.2-1.0) 10/15/16 15:00 Ur Leukocyte Esterase 1+ (NEGATIVE) H 10/15/16 15:00 Urine RBC 2 /hpf (0-3) 10/15/16 15:00 Urine WBC 3 /hpf (3-5) 10/15/16 15:00 Ur Epithelial Cells Rare /hpf (FEW) 10/15/16 15:00 Urine Mucus Few 10/15/16 15:00 LABS PENDING Assessment: 10/16/16 10:01 WITHDRAWAL SYMPTOM Plan: CONTINUE DETOX
[2016-10-16] MEDS: PRENATAL VITAMINS W/ FOLIC ACID TABLET (FP) PO SCH (10:06)
[2016-10-16] MEDS: NICOTINE 21 MG/24 HOURS TOPICAL PATCH TD SCH (10:07)
[2016-10-16] MEDS: diazePAM 5 MG TABLET PO PRN ×2 (10:08→19:57)
[2016-10-16 10:37] LABS: ALK PHOS 113 U/L (45-117); ANION GAP 10 (8-16); BILIRUBIN,TOTAL 0.8 mg/dL (0.2-1.0); CALCIUM 9.2 mg/dL (8.5-10.1); CO2 26 mmol/L (21-32); GLUCOSE,RANDOM 86 mg/dL (74-106); SGOT/AST 50 U/L (15-37); SGPT/ALT 58 U/L (12-78); TOT PROT 7.1 g/dl (6.4-8.2)
--- NOTE | 2016-10-16 11:00 | EKG ---
Test Reason : Blood Pressure : / mmHG Vent. Rate : 075 BPM Atrial Rate : 075 BPM P-R Int : 144 ms QRS Dur : 090 ms QT Int : 398 ms P-R-T Axes : 047 045 037 degrees QTc Int : 444 ms NORMAL SINUS RHYTHM NORMAL ECG WHEN COMPARED WITH ECG OF 25-MAY-2016 18:35, NO SIGNIFICANT CHANGE WAS FOUND Confirmed by ANIYA WOOD MD ([id number]) on 10/16/2016 10:59:49 AM Referred By: Confirmed By:ANIYA WOOD MD
[2016-10-16] MEDS: THIAMINE HCL 100 MG TABLET (FP) PO SCH (22:34)
[2016-10-17] MEDS: diazePAM 5 MG TABLET PO PRN ×3 (03:59→18:42)
[2016-10-17] MEDS: METHADONE HCL 40 MG DISPERSABLE TABLET PO SCH (05:16)
--- NOTE | 2016-10-17 10:22 | PN ---
[facility] CIWA - CIWA Score Nausea/Vomitin Muscle Tremors: 3 Anxiety: 3 Agitation: 2 Paroxysmal Sweats: No Perspiration Orientation: 1-Uncertain about Date Tacttile Disturbances: 1-Very Mild Itch/Numbness Auditory Disturbances: 1-Very Mild Visual Disturbances: 1-Very Mild Sensitivity Headache: 2-Mild CIWA-Ar Total Score: 17 BHS Progress Note (SOAP) Subjective: alert,irritable,anxious,interrupted sleep,tremor Objective: 10/17/16 10:20 Vital Signs Temperature 97.3 F L 10/17/16 09:37 Pulse Rate 62 10/17/16 09:37 Respiratory Rate 18 10/17/16 09:37 Blood Pressure 128/97 10/17/16 09:37 O2 Sat by Pulse Oximetry (%) Laboratory Last Values WBC 9.8 K/mm3 (4.0-10.0) 10/16/16 06:00 RBC 4.40 M/mm3 (4.00-5.60) 10/16/16 06:00 Hgb 13.1 GM/dL (11.7-16.9) 10/16/16 06:00 Hct 39.2 % (35.4-49) 10/16/16 06:00 MCV 89.2 fl (80-96) 10/16/16 06:00 MCHC 33.4 g/dl (32.0-35.9) 10/16/16 06:00 RDW 13.6 % (11.9-15.9) 10/16/16 06:00 Plt Count 233 K/MM3 (134-434) 10/16/16 06:00 MPV 11.0 fl (7.5-11.1) 10/16/16 06:00 Sodium 138 mmol/L (136-145) 10/16/16 06:00 Potassium 4.0 mmol/L (3.5-5.1) 10/16/16 06:00 Chloride 102 mmol/L (98-107) 10/16/16 06:00 Carbon Dioxide 26 mmol/L (21-32) 10/16/16 06:00 Anion Gap 10 (8-16) 10/16/16 06:00 BUN 10 mg/dL (7-18) 10/16/16 06:00 Creatinine 1.0 mg/dL (0.7-1.3) 10/16/16 06:00 Creat Clearance w eGFR > 60 (>60) 10/16/16 06:00 Random Glucose 86 mg/dL (74-106) 10/16/16 06:00 Calcium 9.2 mg/dL (8.5-10.1) 10/16/16 06:00 Total Bilirubin 0.8 mg/dL (0.2-1.0) D 10/16/16 06:00 AST 50 U/L (15-37) H D 10/16/16 06:00 ALT 58 U/L (12-78) 10/16/16 06:00 Alkaline Phosphatase 113 U/L (45-117) D 10/16/16 06:00 Total Protein 7.1 g/dl (6.4-8.2) 10/16/16 06:00 Albumin 4.0 g/dl (3.4-5.0) 10/16/16 06:00 Urine Color Yellow 10/15/16 15:00 Urine Appearance Clear 10/15/16 15:00 Urine pH 5.0 (5.0-8.0) 10/15/16 15:00 Ur Specific [place] 1.020 (1.005-1.025) 10/15/16 15:00 Urine Protein Negative (NEGATIVE) 10/15/16 15:00 Urine Glucose (UA) Negative (NEGATIVE) 10/15/16 15:00 Urine Ketones Negative (NEGATIVE) 10/15/16 15:00 Urine Blood Negative (NEGATIVE) 10/15/16 15:00 Urine Nitrite Negative (NEGATIVE) 10/15/16 15:00 Urine Bilirubin Negative (NEGATIVE) 10/15/16 15:00 Urine Urobilinogen Negative E.U./dl (0.2-1.0) 10/15/16 15:00 Ur Leukocyte Esterase 1+ (NEGATIVE) H 10/15/16 15:00 Urine RBC 2 /hpf (0-3) 10/15/16 15:00 Urine WBC 3 /hpf (3-5) 10/15/16 15:00 Ur Epithelial Cells Rare /hpf (FEW) 10/15/16 15:00 Urine Mucus Few 10/15/16 15:00 RPR Titer Nonreactive (NONREACTIVE) 10/16/16 06:00 Assessment: 10/17/16 10:21 withdrawal symptom Plan: continue detox
[2016-10-17] MEDS: PRENATAL VITAMINS W/ FOLIC ACID TABLET (FP) PO SCH (10:25)
[2016-10-17] MEDS: NICOTINE 21 MG/24 HOURS TOPICAL PATCH TD SCH (10:25)
[2016-10-17] MEDS: diazePAM 5 MG TABLET PO SCH ×2 (10:25→22:10)
[2016-10-17] MEDS: THIAMINE HCL 100 MG TABLET (FP) PO SCH (22:10)
[2016-10-17] MEDS ORDERED: HYDROCORTISONE 0.5% TOPICAL CREAM 30 GM TUBE TP PRN (23:35)
[2016-10-18] MEDS: diazePAM 5 MG TABLET PO PRN ×2 (01:55→06:30)
[2016-10-18] MEDS: METHADONE HCL 40 MG DISPERSABLE TABLET PO SCH (05:16)
[2016-10-18] MEDS: PRENATAL VITAMINS W/ FOLIC ACID TABLET (FP) PO SCH (10:43)
[2016-10-18] MEDS: diazePAM 5 MG TABLET PO SCH ×2 (10:43→22:39)
[2016-10-18] MEDS: NICOTINE 21 MG/24 HOURS TOPICAL PATCH TD SCH (10:43)
--- NOTE | 2016-10-18 12:09 | PN ---
S Progress Note (SOAP) Subjective: ALERT,IRRITABLE,ANXIOUS,INTERRUPTED SLEEP,PAIN IN THE BODY Objective: 10/18/16 12:07 Vital Signs Temperature 97.7 F 10/18/16 09:48 Pulse Rate 82 10/18/16 09:48 Respiratory Rate 16 10/18/16 09:48 Blood Pressure 113/78 10/18/16 09:48 O2 Sat by Pulse Oximetry (%) Assessment: 10/18/16 12:07 WITHDRAWAL SYMPTOM Plan: WITHDRAWAL SYMPTOM,CONTINUE DETOX
[2016-10-18] MEDS: cloNIDine HCL 0.1 MG TABLET PO SCH ×2 (12:14→22:39)
[2016-10-18] MEDS ORDERED: diazePAM 5 MG TABLET PO ONE (13:41)
[2016-10-18] MEDS: THIAMINE HCL 100 MG TABLET (FP) PO SCH (22:39)
[2016-10-19] MEDS: METHADONE HCL 40 MG DISPERSABLE TABLET PO SCH (05:29)
--- NOTE | 2016-10-19 08:47 | PN ---
S Progress Note (SOAP) Subjective: alert,no complaint Objective: 10/19/16 08:45 Vital Signs Temperature 97.7 F 10/19/16 07:21 Pulse Rate 54 L 10/19/16 07:21 Respiratory Rate 16 10/19/16 07:21 Blood Pressure 84/47 10/19/16 07:21 O2 Sat by Pulse Oximetry (%) Assessment: 10/19/16 08:46 detox completed,no withdrawal symptom Plan: discharge today,follow up with after care program as arrangement
--- NOTE | 2016-10-19 08:52 | DS ---
[facility] Detox Discharge Summary Admission Date: 10/15/16 Discharge Date: 10/19/16 - History Present History: Alcohol Dependence, Cannabis Dependence, Sedative Dependence, MMTP Additional Comments: follow up with after care program as arrangement Pertinent Past History: nicotine dependence drug induced seizure - Physical Exam Results Vital Signs: Vital Signs Temperature 97.7 F 10/19/16 07:21 Pulse Rate 54 L 10/19/16 07:21 Respiratory Rate 16 10/19/16 07:21 Blood Pressure 84/47 10/19/16 07:21 O2 Sat by Pulse Oximetry (%) Pertinent Admission Physical Exam Findings: withdrawal symptom - Treatment Hospital Course: Detox Protocol Followed, Detoxed Safely, Responded well, Discharged Condition Good Patient has Accepted a Rehab Referral to: declined - Medication Discharge Medications: Ambulatory Orders NK [No Known Home Medication] 12/29/15 - Diagnosis (1) Alcohol dependence with uncomplicated withdrawal Current Visit: Yes Status: Chronic (2) Cannabis dependence, uncomplicated Current Visit: Yes Status: Chronic (3) Methadone maintenance therapy patient Current Visit: Yes Status: Chronic (4) Nicotine dependence Current Visit: Yes Status: Chronic Qualifiers: Nicotine product type: cigarettes Substance use status: uncomplicated Qualified Code(s): F17.210 - Nicotine dependence, cigarettes, uncomplicated (5) Uncomplicated sedative, hypnotic or anxiolytic withdrawal Current Visit: Yes Status: Chronic (6) Drug-induced seizure Current Visit: Yes Status: Suspected - AMA Did Patient Leave Against Medical Advice: No
[2016-10-19] MEDS ORDERED: diazePAM 5 MG TABLET PO SCH (10:00)
[2016-10-19] MEDS: NICOTINE 21 MG/24 HOURS TOPICAL PATCH TD SCH (10:07)
[2016-10-19] MEDS: PRENATAL VITAMINS W/ FOLIC ACID TABLET (FP) PO SCH (10:07)
[2016-10-19] MEDS: cloNIDine HCL 0.1 MG TABLET PO SCH (10:08)
[2016-10-19 10:50] VITALS: BP 115/59; PULSE 62; TEMP 97.2
== END 2016-10-19 10:12 | disposition home or self-care (01) | DRG 773 ==
LOC: YASAS 09:08 → Y6N 13:38
PROVIDERS: ADMIT Internal Medicine; ATTEND Internal Medicine
PROC: HZ2ZZZZ Detoxification Services for Substance Abuse Treatment (ICD-10-PCS; principal; 2016-10-15)
DX: F10.230 Alcohol dependence with withdrawal, uncomplicated (principal); F13.230 Sedative, hypnotic or anxiolytic dependence with withdrawal, uncomplicated; F11.20 Opioid dependence, uncomplicated; F14.20 Cocaine dependence, uncomplicated; F17.210 Nicotine dependence, cigarettes, uncomplicated; F19.24 Other psychoactive substance dependence with psychoactive substance-induced mood disorder; F41.0 Panic disorder [episodic paroxysmal anxiety]; F31.78 Bipolar disorder, in full remission, most recent episode mixed; Z86.69 Personal history of other diseases of the nervous system and sense organs
CPT/HCPCS: 36415; 80053; 81003; 81015; 85027; 86593; 93005; 93010

== ENCOUNTER 2017-07-31 14:38 | Inpatient (IN) | payer OTHER ==
[2017-07-31 16:57] VITALS: BMI 24.4
--- NOTE | 2017-07-31 19:36 | HP ---
CIWA Score - CIWA Score Nausea/Vomitin-Mild Nausea/No Vomiting Muscle Tremors: 2 Anxiety: 2 Agitation: 0-Normal Activity Paroxysmal Sweats: 2 Orientation: 1-Uncertain about Date Tacttile Disturbances: 0-None Auditory Disturbances: 1-Very Mild Visual Disturbances: 1-Very Mild Sensitivity Headache: 3-Moderate CIWA-Ar Total Score: 13 Admission ROS BHS - HPI Chief Complaint: withdrawal symptoms Allergies/Adverse Reactions: Allergies Allergy/AdvReac Type Severity Reaction Status Date / Time No Known Allergies Allergy Verified 07/31/17 19:03 History of Present Illness: pt is a 32 yr old male with a history of marijuana, IV heroin, nicotine and xanax dependence seeking detox for treatment. PMHX: anxiety and depression. Patient attend out patient MMTP at [facility] 60mg, last medicated 07/31/17. pt methadone verified will be dosed today with 80mg. Denies suicidal / homicidal, denies suicide attempts. Last detox at [facility] 4 months ago. Reports hx of OD, last time about 3 years ago, and reports seizure, last seizure, 2015. Exam Limitations: No Limitations - Ebola screening Have you traveled outside of the country in the last 21 days: No Have you had contact with anyone from an Ebola affected area: No Have you been sick,other than usual withdrawal symptoms: No Do you have a fever: No - Review of Systems Constitutional: Chills, Changes in sleep (reports has not slept in the past day and a half) EENT: reports: No Symptoms Reported Respiratory: reports: No Symptoms reported Cardiac: reports: Palpitations GI: reports: Constipated (last BM 07/30/17), Nausea, Poor Fluid Intake : reports: Burning Musculoskeletal: reports: Back Pain Integumentary: reports: No Symptoms Reported Neuro: reports: See HPI, Headache Endocrine: reports: Excessive Sweating Hematology: reports: No Symptoms Reported Psychiatric: reports: Depressed, other (AO xPP) Patient History - Patient Medical History Hx Anemia: Yes (boarderline ) Hx Asthma: No Hx Chronic Obstructive Pulmonary Disease (COPD): No Hx Cancer: No Hx Cardiac Disorders: No Hx Congestive Heart Failure: No Hx Hypertension: No Hx Hypercholesterolemia: No Hx Pacemaker: No HX Cerebrovascular Accident: No Hx Seizures: No Hx Dementia: No Hx Diabetes: No Hx Gastrointestinal Disorders: No Hx Liver Disease: No Hx Genitourinary Disorders: No Hx Sexually Transmitted Disorders: No Hx Renal Disease (ESRD): No Hx Thyroid Disease: No Hx Human Immunodeficiency Virus (HIV): No (negative) Hx Hepatitis C: No (negtive) Hx Depression: Yes Hx Suicide Attempt: No Hx Bipolar Disorder: Yes (Panic Disorder.) Hx Schizophrenia: No - Patient Surgical History Past Surgical History: Yes Hx Neurologic Surgery: No Hx Cataract Extraction: No Hx Cardiac Surgery: No Hx Lung Surgery: No Hx Breast Surgery: No Hx Breast Biopsy: No Hx Abdominal Surgery: No Hx Appendectomy: No Hx Cholecystectomy: No Hx Genitourinary Surgery: No Hx Section: No Hx Orthopedic Surgery: No Hx Hysterectomy: No Other Surgical History: right inguinal hernia repair in 2005, tonsillectomy Anesthesia Reaction: No - PPD History Previous Implant?: Yes Date: 10/17/16 Results: 0 mm PPD to be Administered?: No - Reproductive History Patient is a Female of Child Bearing Age (11 -55 yrs old): No - Smoking Cessation Smoking history: Current every day smoker Have you smoked in the past 12 months: Yes Aproximately how many cigarettes per day: 10 Hx Chewing Tobacco Use: No Initiated information on smoking cessation: Yes 'Breaking Loose' booklet given: 07/31/17 - Substance & Tx. History Hx Alcohol Use: No Hx Substance Use: Yes Substance Use Type: Heroin, Marijuana, Opiates, Tranquilizers Hx Substance Use Treatment: Yes ([facility] 4 months ago ) - Substances Abused Heroin Route: Injection Frequency: Daily Amount used: 10-15 BAGS Age of first use: 22 Date of Last Use: 07/30/17 Alprazolam (Xanax) Route: Oral Frequency: Daily Amount used: 6/2MG Age of first use: 18 Date of Last Use: 07/31/17 Marijuana/Hashish Route: Smoking Frequency: 3-6 times per week Amount used: 1 joint Age of first use: 16 Date of Last Use: 07/30/17 Family Disease History - Family Disease History Family Disease History: CA: Mother (BREAST), Other: Father ( BRAIN ANEURYSM; ALCOHOL) Admission Physical Exam BHS - Vital Signs Vital Signs: Vital Signs - 24 hr 07/31/17 16:55 Temperature 97.7 F Pulse Rate 80 Respiratory 18 Rate Blood Pressure 100/60 - Physical General Appearance: Yes: Appropriately Dressed, Sweating, Anxious HEENTM: Yes: EOMI, Hearing grossly Normal, Normal ENT Inspection, Normocephalic , Normal Voice, [place], Pharynx Normal, Tm's normal, Other (chelithis, dry mucous membranes) Respiratory: Yes: Chest Non-Tender, Lungs Clear, Normal Breath Sounds, No Respiratory Distress, No Accessory Muscle Use Neck: Yes: No masses,lesions,Nodules, Trachea in good position Breast: Yes: Breast Exam Deferred Cardiology: Yes: Regular Rhythm, Regular Rate Abdominal: Yes: Normal Bowel Sounds, Non Tender, Flat, Soft Genitourinary: Yes: Within Normal Limits Back: Yes: Normal Inspection Musculoskeletal: Yes: full range of Motion, Gait Steady, Pelvis Stable Extremities: Yes: Normal Capillary Refill, Normal Inspection, Normal Range of Motion, Non-Tender Neurological: Yes: maintenance service supervisor II-XII NML intact, Fully Oriented, Alert, Motor Strength 5/5, Depressed Affect Integumentary: Yes: Normal Color, Warm, Moist Lymphatic: Yes: Within Normal Limits - Diagnostic (1) Dehydration Current Visit: Yes Status: Acute (2) Anxious mood Current Visit: Yes Status: Acute (3) Cannabis dependence, uncomplicated Current Visit: Yes Status: Acute (4) Nicotine dependence Current Visit: Yes Status: Acute Qualifiers: Nicotine product type: cigarettes Substance use status: uncomplicated Qualified Code(s): F17.210 - Nicotine dependence, cigarettes, uncomplicated (5) Opioid dependence on agonist therapy Current Visit: Yes Status: Chronic Comment: on Methadone 60 mg, pending verification (6) Uncomplicated sedative, hypnotic or anxiolytic withdrawal Current Visit: No Status: Chronic (7) History of seizure Current Visit: Yes Status: Suspected Cleared for Admission [facility] - Detox or Rehab [facility] Level of Care: Medically Managed Detox Regimen/Protocol: Valium [facility] Breath Alcohol Content Breath Alcohol Content: 0 Urine Drug Screen - Results Drug Screen Negative: No Urine Drug Screen Results: THC-Marijuana, OPI-Opiates, BZO-Benzodiazepines, MTD- Methadone
[2017-07-31] MEDS ORDERED: MENTHOL/PHENOL 1 EACH UD MM PRN (19:40)
[2017-07-31] MEDS ORDERED: LOPERAMIDE HCL 2 MG CAPSULE PO PRN (19:40)
[2017-07-31] MEDS ORDERED: NICOTINE POLACRILEX 2 MG GUM BUC PRN (19:40)
[2017-07-31] MEDS ORDERED: P-EPHED 60MG/TRIPROLIDI 2.5MG TABLET PO PRN (19:40)
[2017-07-31] MEDS ORDERED: MAGNESIUM CITRATE 300 ML BOTTLE PO PRN (19:40)
[2017-07-31] MEDS ORDERED: MAG HYDROX/AL HYDROX/SIMETH 30 ML UNIT-DOSE CUP PO PRN (19:40)
[2017-07-31] MEDS ORDERED: ACETAMINOPHEN 325 MG TABLET (FP) PO PRN (19:40)
[2017-07-31] MEDS ORDERED: guaiFENesin/D-METHORPHAN HB 10 ML UNIT-DOSE CUPS PO PRN (19:40)
[2017-07-31] MEDS ORDERED: MAGNESIUM HYDROX 2400MG/30ML ORAL SUSPENSION 30 ML CUP PO PRN (19:40)
[2017-07-31] MEDS ORDERED: IBUPROFEN 400 MG TABLET (FP) PO PRN (19:40)
[2017-07-31] MEDS ORDERED: hydrOXYzine PAMOATE 50 MG CAPSULE (FP) PO PRN (19:40)
[2017-07-31] MEDS ORDERED: diazePAM 5 MG TABLET PO ONE (19:45)
[2017-07-31] MEDS ORDERED: MELATONIN 5 MG TABLETS PO PRN (22:00)
[2017-07-31 22:11] LABS: URINE APPEARANCE CLEAR; URINE BILIRUBIN NEGATIVE (<2.0 mg/dL); URINE BLOOD NEGATIVE (NEGATIVE); URINE COLOR YELLOW; URINE GLUCOSE (UA) NEGATIVE (NEGATIVE); URINE KETONE NEGATIVE (NEGATIVE); URINE LEUK ESTERASE TRACE (NEGATIVE); URINE NITRITE NEGATIVE (NEGATIVE); URINE PROTEIN NEGATIVE (NEGATIVE)
[2017-07-31 22:20] LABS: EPI CELLS RARE /HPF (FEW); URINE MUCUS RARE
[2017-07-31] MEDS: THIAMINE HCL 100 MG TABLET (FP) PO SCH (22:36)
[2017-07-31] MEDS: diazePAM 5 MG TABLET PO SCH (22:36)
[2017-08-01] MEDS: diazePAM 5 MG TABLET PO SCH ×3 (07:11→22:24)
[2017-08-01] MEDS ORDERED: METHADONE HCL 10 MG TABLET PO ONE (09:27)
[2017-08-01] MEDS ORDERED: METHADONE 40 MG, METHADONE 20 MG PO ONE (09:35)
--- NOTE | 2017-08-01 09:41 | CONSULT ---
[facility] Psychiatric Consult - Data Date of interview: 08/01/17 Admission source: [facility] Identifying data: This is a 32 years old male, single, unemployed, homeless, with no PA, with psychiatric hospitalization history, with a history of marijuana, IV heroin, nicotine and xanax dependence seeking detox for withdrawal. Substance Abuse History: Urine Drug Screen Results: THC-Marijuana, OPI-Opiates, BZO-Benzodiazepines, MTD-Methadone. Smoking history: Current every day smoker. Have you smoked in the past 12 months: Yes. Aproximately how many cigarettes per day: 10. Hx Chewing Tobacco Use: No. Initiated information on smoking cessation: Yes. 'Breaking Loose' booklet given: 07/31/17. - Substance & Tx. History. Hx Alcohol Use: No. Hx Substance Use: Yes. Substance Use Type: Heroin, Marijuana, Opiates, Tranquilizers. Hx Substance Use Treatment: Yes ( [facility] 4 months ago ). - Substances Abused. Heroin. Route: Injection. Frequency: Daily. Amount used: 10-15 BAGS. Age of first use: 22. Date of Last Use: 07/30/17. Alprazolam (Xanax). Route: Oral. Frequency: Daily. Amount used: 6/2MG. Age of first use: 18. Date of Last Use: 07/31/17. Marijuana/Hashish. Route: Smoking. Frequency: 3-6 times per week. Amount used : 1 joint. Age of first use: 16. Date of Last Use: 07/30/17 Medical History: MMTP 60mg per day, Seizure history Psychiatric History: Patient reports history of depression and anxiety, reports most recent psychiatric admission for safety on 2015 at [facility], reports no medications taking prior to admission. As per computer there vis a history of Bipolar Disorder. Denies suicidal, homicidal history history Physical/Sexual Abuse/Trauma History: Denies Additional Comment: Urine Drug Screen Results: THC-Marijuana, OPI-Opiates, BZO- Benzodiazepines, MTD-Methadone 60mg per day, confirmed. Observation. Detox Unit [place] Protocol. Mental Status Exam - Mental Status Exam Alert and Oriented to: Person Cognitive Function: Fair Patient Appearance: Unkempt Mood: Angry, Sad Affect: Mood Congruent Patient Behavior: Guarded Speech Pattern: Delayed Voice Loudness: Mildly Soft/Quiet Thought Process: Goal Oriented Thought Disorder: Being Controlled Hallucinations: Denies Suicidal Ideation: Denies Homicidal Ideation: Denies Insight/Judgement: Fair Sleep: Difficulty falling asleep Appetite: Weight loss Muscle strength/Tone: Normal Gait/Station: Shuffling Additional Comments: Observation. Detox Unit Carte Protocol. Psychiatric Findings - Problem List ([place] 1, 2,3) (1) Cannabis dependence, uncomplicated Current Visit: Yes Status: Acute (2) Nicotine dependence Current Visit: Yes Status: Acute Qualifiers: Nicotine product type: cigarettes Substance use status: uncomplicated Qualified Code(s): F17.210 - Nicotine dependence, cigarettes, uncomplicated (3) Opioid dependence on agonist therapy Current Visit: Yes Status: Chronic Comment: on Methadone 60 mg, pending verification (4) Drug-induced mood disorder Current Visit: No Status: Acute (5) Alcohol dependence with uncomplicated withdrawal Current Visit: No Status: Chronic (6) Methadone maintenance therapy patient Current Visit: No Status: Chronic Comment: pt now receives 80mg of methadone. dose verified. last dose received yesterday 10/14/16 (7) Bipolar disorder Current Visit: No Status: Suspected Qualifiers: Active/Remission status: in full remission Most recent bipolar episode type : mixed Qualified Code(s): F31.78 - Bipolar disorder, in full remission, most recent episode mixed (8) Drug-induced seizure Current Visit: No Status: Suspected - Initial Treatment Plan Initial Treatment Plan: Observation. Detox Unit Carte Protocol.
[2017-08-01 10:12] LABS: HEMATOCRIT 33.9 % (35.4-49); HEMOGLOBIN 11.5 GM/dL (11.7-16.9); MCH 30.4 pg (25.7-33.7); MCHC 33.9 g/dl (32.0-35.9); MEAN CELL VOLUME 89.4 fl (80-96); MEAN PLT VOLUME 10.3 fl (7.5-11.1); PLATELET COUNT 176 K/MM3 (134-434); RBC 3.79 M/mm3 (4.00-5.60); RDW 13.5 % (11.9-15.9); WHITE BLOOD COUNT 6.3 K/mm3 (4.0-10.0)
[2017-08-01] MEDS ORDERED: METHADONE HCL 10 MG TABLET ONE (10:12)
[2017-08-01] MEDS ORDERED: METHADONE HCL 40 MG DISPERSABLE TABLET ONE (10:13)
[2017-08-01] MEDS: PRENATAL VITAMINS W/ FOLIC ACID TABLET (FP) PO SCH (10:47)
[2017-08-01] MEDS: GABAPENTIN 300 MG CAPSULE (FP) PO SCH (10:47)
[2017-08-01] MEDS: NICOTINE 14 MG/24 HOURS TOPICAL PATCH TD SCH (10:47)
[2017-08-01 10:49] LABS: ANION GAP 2 (8-16); BLOOD UREA NITROGEN 14 mg/dL (7-18); CALCIUM 8.1 mg/dL (8.5-10.1); CHLORIDE 106 mmol/L (98-107); CO2 31 mmol/L (21-32); CREATININE 0.9 mg/dL (0.7-1.3); GLUCOSE,RANDOM 101 mg/dL (74-106); SGOT/AST 45 U/L (15-37); SGPT/ALT 62 U/L (12-78); SODIUM 139 mmol/L (136-145); TOT PROT 5.7 g/dl (6.4-8.2)
[2017-08-01 10:50] LABS: ALK PHOS 83 U/L (45-117)
--- NOTE | 2017-08-01 10:52 | PN ---
[facility] CIWA - CIWA Score Nausea/Vomitin-No Nausea/No Vomiting Muscle Tremors: 4-Moderate,w/Arms Extend Anxiety: 5 Agitation: 4-Moderately Restless Paroxysmal Sweats: 1-Minimal Palms Moist Orientation: 0-Oriented Tacttile Disturbances: 3-Moderate Itch/Numb/Burn Auditory Disturbances: 0-None Visual Disturbances: 0-None Headache: 0-None Present CIWA-Ar Total Score: 17 S Progress Note (SOAP) Subjective: ANXIETY,RESTLESSNESS,PACING ON HALLWAY. Objective: 08/01/17 10:50 Vital Signs Temperature 95.5 F L 08/01/17 09:28 Pulse Rate 63 08/01/17 09:28 Respiratory Rate 18 08/01/17 09:28 Blood Pressure 87/59 08/01/17 09:28 O2 Sat by Pulse Oximetry (%) Laboratory Last Values WBC 6.3 K/mm3 (4.0-10.0) D 08/01/17 07:00 RBC 3.79 M/mm3 (4.00-5.60) L 08/01/17 07:00 Hgb 11.5 GM/dL (11.7-16.9) L D 08/01/17 07:00 Hct 33.9 % (35.4-49) L 08/01/17 07:00 MCV 89.4 fl (80-96) 08/01/17 07:00 MCH 30.4 pg (25.7-33.7) 08/01/17 07:00 MCHC 33.9 g/dl (32.0-35.9) 08/01/17 07:00 RDW 13.5 % (11.9-15.9) 08/01/17 07:00 Plt Count 176 K/MM3 (134-434) D 08/01/17 07:00 MPV 10.3 fl (7.5-11.1) 08/01/17 07:00 Urine Color Yellow 07/31/17 21:00 Urine Appearance Clear 07/31/17 21:00 Urine pH 5.0 (5.0-8.0) 07/31/17 21:00 Ur Specific [place] 1.026 (1.001-1.035) 07/31/17 21:00 Urine Protein Negative (NEGATIVE) 07/31/17 21:00 Urine Glucose (UA) Negative (NEGATIVE) 07/31/17 21:00 Urine Ketones Negative (NEGATIVE) 07/31/17 21:00 Urine Blood Negative (NEGATIVE) 07/31/17 21:00 Urine Nitrite Negative (NEGATIVE) 07/31/17 21:00 Urine Bilirubin Negative (<2.0 mg/dL) 07/31/17 21:00 Urine Urobilinogen 2.0 mg/dL (0.2-1.0) 07/31/17 21:00 Ur Leukocyte Esterase Trace (NEGATIVE) 07/31/17 21:00 Urine WBC (Auto) None /hpf (3-5) 07/31/17 21:00 Urine RBC (Auto) 14 /hpf (0-3) 07/31/17 21:00 Ur Epithelial Cells Rare /HPF (FEW) 07/31/17 21:00 Urine Mucus Rare 07/31/17 21:00 LABS NOTED Assessment: 08/01/17 10:50 WITHDRAWAL SX Plan: CONTINUE DETOX INCREASE PO FLUIDS. VALIUM DIRECTED.
[2017-08-01 11:37] LABS: BILIRUBIN,TOTAL < 0.1 mg/dL (0.2-1.0)
--- NOTE | 2017-08-01 11:44 | EKG ---
Test Reason : Blood Pressure : / mmHG Vent. Rate : 066 BPM Atrial Rate : 066 BPM P-R Int : 146 ms QRS Dur : 092 ms QT Int : 414 ms P-R-T Axes : 046 049 031 degrees QTc Int : 434 ms NORMAL SINUS RHYTHM NORMAL ECG WHEN COMPARED WITH ECG OF 15-OCT-2016 13:46, NONSPECIFIC T WAVE ABNORMALITY NO LONGER EVIDENT IN ANTERIOR LEADS Confirmed by KHALIF SHELBY MD ([id number]) on 08/01/2017 11:44:20 AM Referred By: Confirmed By:KHALIF SHELBY MD
[2017-08-01] MEDS: diazePAM 5 MG TABLET PO PRN ×2 (12:02→19:49)
[2017-08-01] MEDS: THIAMINE HCL 100 MG TABLET (FP) PO SCH (22:24)
[2017-08-02] MEDS ORDERED: METHADONE HCL 40 MG DISPERSABLE TABLET ONE (04:51)
[2017-08-02] MEDS ORDERED: METHADONE HCL 10 MG TABLET ONE (04:51)
[2017-08-02] MEDS ORDERED: METHADONE HCL 10 MG TABLET PO SCH (06:00)
[2017-08-02] MEDS: METHADONE 40 MG, METHADONE 20 MG PO SCH (06:27)
[2017-08-02] MEDS: diazePAM 5 MG TABLET PO PRN ×3 (09:02→19:18)
[2017-08-02] MEDS: NICOTINE 14 MG/24 HOURS TOPICAL PATCH TD SCH (10:25)
[2017-08-02] MEDS: diazePAM 5 MG TABLET PO SCH ×2 (10:25→22:19)
[2017-08-02] MEDS: PRENATAL VITAMINS W/ FOLIC ACID TABLET (FP) PO SCH (10:25)
[2017-08-02] MEDS: GABAPENTIN 300 MG CAPSULE (FP) PO SCH (10:25)
--- NOTE | 2017-08-02 10:47 | PN ---
[facility] CIWA - CIWA Score Nausea/Vomitin-No Nausea/No Vomiting Muscle Tremors: 4-Moderate,w/Arms Extend Anxiety: 4-Mod. Anxious/Guarded Agitation: 3 Paroxysmal Sweats: 1-Minimal Palms Moist Orientation: 0-Oriented Tacttile Disturbances: 3-Moderate Itch/Numb/Burn Auditory Disturbances: 0-None Visual Disturbances: 0-None Headache: 0-None Present CIWA-Ar Total Score: 15 S Progress Note (SOAP) Subjective: ANXIETY,SWEATS,RASH ON BEARDED LIP. EAR RING HOLE WITH SLIGHT REDNESS. Objective: 08/02/17 10:45 Vital Signs Temperature 97.3 F L 08/02/17 09:12 Pulse Rate 75 08/02/17 09:12 Respiratory Rate 18 08/02/17 09:12 Blood Pressure 103/64 08/02/17 09:12 O2 Sat by Pulse Oximetry (%) Laboratory Last Values WBC 6.3 K/mm3 (4.0-10.0) D 08/01/17 07:00 RBC 3.79 M/mm3 (4.00-5.60) L 08/01/17 07:00 Hgb 11.5 GM/dL (11.7-16.9) L D 08/01/17 07:00 Hct 33.9 % (35.4-49) L 08/01/17 07:00 MCV 89.4 fl (80-96) 08/01/17 07:00 MCH 30.4 pg (25.7-33.7) 08/01/17 07:00 MCHC 33.9 g/dl (32.0-35.9) 08/01/17 07:00 RDW 13.5 % (11.9-15.9) 08/01/17 07:00 Plt Count 176 K/MM3 (134-434) D 08/01/17 07:00 MPV 10.3 fl (7.5-11.1) 08/01/17 07:00 Sodium 139 mmol/L (136-145) 08/01/17 07:00 Potassium 4.0 mmol/L (3.5-5.1) 08/01/17 07:00 Chloride 106 mmol/L (98-107) 08/01/17 07:00 Carbon Dioxide 31 mmol/L (21-32) 08/01/17 07:00 Anion Gap 2 (8-16) L 08/01/17 07:00 BUN 14 mg/dL (7-18) D 08/01/17 07:00 Creatinine 0.9 mg/dL (0.7-1.3) 08/01/17 07:00 Creat Clearance w eGFR > 60 (>60) 08/01/17 07:00 Random Glucose 101 mg/dL (74-106) 08/01/17 07:00 Calcium 8.1 mg/dL (8.5-10.1) L 08/01/17 07:00 Total Bilirubin < 0.1 mg/dL (0.2-1.0) L D 08/01/17 07:00 AST 45 U/L (15-37) H 08/01/17 07:00 ALT 62 U/L (12-78) 08/01/17 07:00 Alkaline Phosphatase 83 U/L (45-117) D 08/01/17 07:00 Total Protein 5.7 g/dl (6.4-8.2) L 08/01/17 07:00 Albumin 3.0 g/dl (3.4-5.0) L D 08/01/17 07:00 Urine Color Yellow 07/31/17 21:00 Urine Appearance Clear 07/31/17 21:00 Urine pH 5.0 (5.0-8.0) 07/31/17 21:00 Ur Specific [place] 1.026 (1.001-1.035) 07/31/17 21:00 Urine Protein Negative (NEGATIVE) 07/31/17 21:00 Urine Glucose (UA) Negative (NEGATIVE) 07/31/17 21:00 Urine Ketones Negative (NEGATIVE) 07/31/17 21:00 Urine Blood Negative (NEGATIVE) 07/31/17 21:00 Urine Nitrite Negative (NEGATIVE) 07/31/17 21:00 Urine Bilirubin Negative (<2.0 mg/dL) 07/31/17 21:00 Urine Urobilinogen 2.0 mg/dL (0.2-1.0) 07/31/17 21:00 Ur Leukocyte Esterase Trace (NEGATIVE) 07/31/17 21:00 Urine WBC (Auto) None /hpf (3-5) 07/31/17 21:00 Urine RBC (Auto) 14 /hpf (0-3) 07/31/17 21:00 Ur Epithelial Cells Rare /HPF (FEW) 07/31/17 21:00 Urine Mucus Rare 07/31/17 21:00 RPR Titer Nonreactive (NONREACTIVE) 08/01/17 07:00 Assessment: 08/02/17 10:46 WITHDRAWAL SX Plan: CONTINUE DETOX BACITRACIN OINTMENT APPLY TO AFFECTED AREAS DIRECTED.
[2017-08-02] MEDS: BACITRACIN 0.9 GM PACKET TP SCH ×2 (12:50→22:18)
[2017-08-02 15:33] LABS: URINE APPEARANCE CLEAR; URINE BILIRUBIN NEGATIVE (<2.0 mg/dL); URINE BLOOD NEGATIVE (NEGATIVE); URINE COLOR STRAW; URINE GLUCOSE (UA) NEGATIVE (NEGATIVE); URINE KETONE NEGATIVE (NEGATIVE); URINE NITRITE NEGATIVE (NEGATIVE); URINE PROTEIN NEGATIVE (NEGATIVE); URINE UROBILINOGEN NEGATIVE mg/dL (0.2-1.0)
[2017-08-02 15:48] LABS: URINE LEUK ESTERASE 2+ (NEGATIVE)
[2017-08-02 15:51] LABS: EPI CELLS RARE /HPF (FEW); URINE MUCUS RARE
[2017-08-02] MEDS: THIAMINE HCL 100 MG TABLET (FP) PO SCH (22:18)
[2017-08-03] MEDS ORDERED: METHADONE HCL 10 MG TABLET ONE (03:39)
[2017-08-03] MEDS ORDERED: METHADONE HCL 40 MG DISPERSABLE TABLET ONE (03:39)
[2017-08-03] MEDS: diazePAM 5 MG TABLET PO PRN ×3 (06:02→17:58)
[2017-08-03] MEDS: METHADONE 40 MG, METHADONE 20 MG PO SCH (06:02)
[2017-08-03] MEDS: NICOTINE 14 MG/24 HOURS TOPICAL PATCH TD SCH (10:13)
[2017-08-03] MEDS: BACITRACIN 0.9 GM PACKET TP SCH ×2 (10:13→22:14)
[2017-08-03] MEDS: PRENATAL VITAMINS W/ FOLIC ACID TABLET (FP) PO SCH (10:13)
[2017-08-03] MEDS: GABAPENTIN 300 MG CAPSULE (FP) PO SCH (10:13)
[2017-08-03] MEDS: diazePAM 5 MG TABLET PO SCH ×3 (10:13→22:14)
--- NOTE | 2017-08-03 17:28 | PN ---
[facility] Progress Note (SOAP) Subjective: Fatigue, Sweating, Anxious. Objective: PATIENT A & O X 3, OBSERVED AMBULATING ON UNIT. NO ACUTE DISTRESS. 08/03/17 17:27 Vital Signs Temperature 97.0 F L 08/03/17 17:20 Pulse Rate 63 08/03/17 17:20 Respiratory Rate 16 08/03/17 17:20 Blood Pressure 98/52 08/03/17 17:20 O2 Sat by Pulse Oximetry (%) Laboratory Tests 07/31/17 08/01/17 08/01/17 21:00 07:00 07:00 WBC 6.3 D RBC 3.79 L Hgb 11.5 L D Hct 33.9 L MCV 89.4 MCH 30.4 MCHC 33.9 RDW 13.5 Plt Count 176 D MPV 10.3 Sodium 139 Potassium 4.0 Chloride 106 Carbon Dioxide 31 Anion Gap 2 L BUN 14 D Creatinine 0.9 Creat Clearance w eGFR > 60 Random Glucose 101 Calcium 8.1 L Total Bilirubin < 0.1 L D AST 45 H ALT 62 Alkaline Phosphatase 83 D Total Protein 5.7 L Albumin 3.0 L D Urine Color Yellow Urine Appearance Clear Urine pH 5.0 Ur Specific [place] 1.026 Urine Protein Negative Urine Glucose (UA) Negative Urine Ketones Negative Urine Blood Negative Urine Nitrite Negative Urine Bilirubin Negative Urine Urobilinogen 2.0 Ur Leukocyte Esterase Trace Urine WBC (Auto) None Urine RBC (Auto) 14 Ur Epithelial Cells Rare Urine Mucus Rare RPR Titer 08/01/17 08/02/17 07:00 11:10 WBC RBC Hgb Hct MCV MCH MCHC RDW Plt Count MPV Sodium Potassium Chloride Carbon Dioxide Anion Gap BUN Creatinine Creat Clearance w eGFR Random Glucose Calcium Total Bilirubin AST ALT Alkaline Phosphatase Total Protein Albumin Urine Color Straw Urine Appearance Clear Urine pH 6.0 Ur Specific [place] 1.008 Urine Protein Negative Urine Glucose (UA) Negative Urine Ketones Negative Urine Blood Negative Urine Nitrite Negative Urine Bilirubin Negative Urine Urobilinogen Negative Ur Leukocyte Esterase 2+ H Urine WBC (Auto) 6 Urine RBC (Auto) <1 Ur Epithelial Cells Rare Urine Mucus Rare RPR Titer Nonreactive LABS NOTED. Assessment: 08/03/17 17:27 WITHDRAWAL SYMPTOMS. Plan: CONTINUE DETOX. INCREASE DAILY PO FLUID INTAKE.
[2017-08-03] MEDS: THIAMINE HCL 100 MG TABLET (FP) PO SCH (22:12)
[2017-08-04] MEDS ORDERED: METHADONE HCL 10 MG TABLET ONE (04:46)
[2017-08-04] MEDS ORDERED: METHADONE HCL 40 MG DISPERSABLE TABLET ONE (04:46)
[2017-08-04] MEDS: METHADONE 40 MG, METHADONE 20 MG PO SCH (05:36)
[2017-08-04 06:19] VITALS: BP 117/72; PULSE 60; TEMP 96.1
--- NOTE | 2017-08-04 08:34 | DS ---
[facility] Detox Discharge Summary Admission Date: 07/31/17 Discharge Date: 08/04/17 - History Present History: Alcohol Dependence, Cannabis Dependence, Sedative Dependence, MMTP - Physical Exam Results Vital Signs: Vital Signs Temperature 96.1 F L 08/04/17 06:18 Pulse Rate 60 08/04/17 06:18 Respiratory Rate 16 08/04/17 06:30 Blood Pressure 117/72 08/04/17 06:18 O2 Sat by Pulse Oximetry (%) - Treatment Hospital Course: Detox Protocol Followed, Detoxed Safely, Responded well, Discharged Condition Good, Rehab Referral Accepted - Medication Discharge Medications: Ambulatory Orders Gabapentin [Neurontin] 600 mg PO DAILY 07/31/17 Methadone [Dolophine -] 60 mg PO DAILY 07/31/17 - Diagnosis (1) Anxious mood Current Visit: Yes Status: Acute (2) Cannabis dependence, uncomplicated Current Visit: Yes Status: Chronic (3) Dehydration Current Visit: Yes Status: Acute (4) Nicotine dependence Current Visit: Yes Status: Chronic Qualifiers: Nicotine product type: cigarettes Substance use status: uncomplicated Qualified Code(s): F17.210 - Nicotine dependence, cigarettes, uncomplicated (5) Methadone maintenance therapy patient Current Visit: Yes Status: Chronic (6) Opioid dependence on agonist therapy Current Visit: Yes Status: Chronic (7) Uncomplicated sedative, hypnotic or anxiolytic withdrawal Current Visit: Yes Status: Chronic (8) History of seizure Current Visit: Yes Status: Suspected (9) Drug-induced mood disorder Current Visit: Yes Status: Chronic (10) Alcohol dependence with uncomplicated withdrawal Current Visit: Yes Status: Chronic (11) Methadone maintenance therapy patient Current Visit: Yes Status: Chronic (12) Panic disorder Current Visit: No Status: Chronic (13) Bipolar disorder Current Visit: No Status: Suspected Qualifiers: Active/Remission status: in full remission Most recent bipolar episode type : mixed Qualified Code(s): F31.78 - Bipolar disorder, in full remission, most recent episode mixed (14) Drug-induced seizure Current Visit: No Status: Suspected - AMA Did Patient Leave Against Medical Advice: No (going home)
[2017-08-04] MEDS ORDERED: diazePAM 5 MG TABLET PO SCH (10:00)
== END 2017-08-04 09:13 | disposition home or self-care (01) | DRG 773 ==
LOC: YASAS 14:38 → Y3N 19:54
PROVIDERS: ADMIT Internal Medicine; ATTEND Internal Medicine
PROC: HZ2ZZZZ Detoxification Services for Substance Abuse Treatment (ICD-10-PCS; principal; 2017-07-31)
DX: F11.20 Opioid dependence, uncomplicated (principal); F13.230 Sedative, hypnotic or anxiolytic dependence with withdrawal, uncomplicated; F10.230 Alcohol dependence with withdrawal, uncomplicated; F17.210 Nicotine dependence, cigarettes, uncomplicated; F19.24 Other psychoactive substance dependence with psychoactive substance-induced mood disorder; F31.78 Bipolar disorder, in full remission, most recent episode mixed; F41.0 Panic disorder [episodic paroxysmal anxiety]; F41.9 Anxiety disorder, unspecified; E86.0 Dehydration; Z86.69 Personal history of other diseases of the nervous system and sense organs
CPT/HCPCS: 36415; 80053; 81003; 81015; 85027; 86593; 93005; 93010

== ENCOUNTER 2019-04-06 08:39 | Inpatient (IN) | payer SELFPAY ==
[2019-04-06 09:08] VITALS: BMI 24.3
--- NOTE | 2019-04-06 09:09 | HP ---
COWS - Scale Resting Pulse: 1= IN 81-100 Sweatin= Chills/Flushing Restless Observation: 1= Difficult to Sit Still Pupil Size: 1= Pupils >than Normal Bone or Joint Aches: 1= Mild Discomfort Runny Nose/ Eye Tearin= Nasal Congestion GI Upset > 30mins: 2= Nausea/Diarrhea Tremor Observation: 1= Tremor [place], Not Seen Yawning Observation: 1= 1-2x During Session Anxiety or Irritability: 1=Feels Anxious/Irritable Goose Flesh Skin: 3=Piloerection COWS Score: 14 CIWA Score Nausea/Vomitin Muscle Tremors: 2 Anxiety: 3 Agitation: 3 Paroxysmal Sweats: 3 Orientation: 0-Oriented Tacttile Disturbances: 0-None Auditory Disturbances: 0-None Visual Disturbances: 0-None Headache: 3-Moderate CIWA-Ar Total Score: 16 - Admission Criteria [facility]AS Guidelines: Admission for Medically Managed Detox: Requires at least one of the followin. CIWA greater than 12 2. Seizures within the past 24 hours 3. Delirium tremens within the past 24 hours 4. Hallucinations within the past 24 hours 5. Acute intervention needed for co occurring medical disorder 6. Acute intervention needed for co occurring psychiatric disorder 7. Severe withdrawal that cannot be handled at a lower level of care (continued vomiting, continued diarrhea, abnormal vital signs) requiring intravenous medication and/or fluids 8. Admitting History and Physical - Admission Chief Complaint: " I want to be detoxed from substances and get clean." History of Present Illness: Patient is a 35 yr old male with a history of marijuana, IV heroin, nicotine seeking detox for treatment. PMHX: anxiety and depression. Patient did attend out patient MMTP at [facility] for 3 months in 2018, then you came to detox and went into [facility] at [facility] for 1 month and then he was incarcerated for 12 month due to violation of probation. He relapsed 1 month after release from incarceration he started drinking and using IV heroin. He is using 1 gm heroin daily, last used last night. He drinks 1 pint of vodka, tequila or harder liquor daily, last drank last night. He had a withdrawal seizure in 2017. He has had blackout but in 2017. He really wants to attend detox and then go to rehab for continued abstinence. He smokes marijuana 2 joints daily. He smokes ciggarettes 1 ppd since age 20 He has no legal issues pending now. PMH: None except for borderline anemia Psurg: Right Inguinal Herniorrhaphy 2006 Psych: History of Depression and Anxiety, on no meds. Denies suicidal / homicidal, denies suicide attempts. History Source: Patient Limitations to Obtaining History: No Limitations - Past Medical History Psych: Yes: Anxiety, Depression - Past Surgical History Past Surgical History: Yes: Hernia Repair - Advance Directives Advance Directives: No: Living Will, Health Care Proxy, DNR - Smoking History Smoking history: Current every day smoker Have you smoked in the past 12 months: Yes Aproximately how many cigarettes per day: 10 - Alcohol/Substance Use Hx Alcohol Use: Yes (1 pint of vodka or harder liquor daily) Number of Drinks Daily: 10 History of Substance Use: reports: Heroin, Marijuana Date of Last Use: 04/05/19 - Social History Usual Living Arrangement: Yes: With Parent Do you think of yourself as: Straight/Heterosexual ADL: Independent Occupation: unemployed, Lost My Name History of Recent Travel: No Admission [facility] Allergies/Adverse Reactions: Allergies Allergy/AdvReac Type Severity Reaction Status Date / Time No Known Allergies Allergy Verified 04/06/19 08:49 - Ebola screening Have you traveled outside of the country in the last 21 days: No Have you had contact with anyone from an Ebola affected area: No Have you been sick,other than usual withdrawal symptoms: No Do you have a fever: No - Review of Systems Constitutional: Chills, Diaphoresis, Loss of Appetite EENT: reports: No Symptoms Reported Respiratory: reports: No Symptoms reported Cardiac: reports: No Symptoms Reported GI: reports: Nausea, Vomiting : reports: No Symptoms Reported Musculoskeletal: reports: Joint Pain, Muscle Pain Integumentary: reports: No Symptoms Reported Neuro: reports: Headache Endocrine: reports: No Symptoms Reported Hematology: reports: No Symptoms Reported Psychiatric: reports: Agitated, Anxious, Depressed Other Systems: Reviewed and Negative Patient History - Patient Medical History Hx Anemia: Yes (boarderline ) Hx Asthma: No Hx Chronic Obstructive Pulmonary Disease (COPD): No Hx Cancer: No Hx Cardiac Disorders: No Hx Congestive Heart Failure: No Hx Hypertension: No Hx Hypercholesterolemia: No Hx Pacemaker: No HX Cerebrovascular Accident: No Hx Seizures: No Hx Dementia: No Hx Diabetes: No Hx Gastrointestinal Disorders: No Hx Liver Disease: No Hx Genitourinary Disorders: No Hx Sexually Transmitted Disorders: No Hx Renal Disease (ESRD): No Hx Thyroid Disease: No Hx Human Immunodeficiency Virus (HIV): No (negative) Hx Hepatitis C: No (negtive) Hx Depression: Yes Hx Suicide Attempt: No Hx Bipolar Disorder: Yes (Panic Disorder.) Hx Schizophrenia: No - Patient Surgical History Past Surgical History: Yes Hx Neurologic Surgery: No Hx Cataract Extraction: No Hx Cardiac Surgery: No Hx Lung Surgery: No Hx Breast Surgery: No Hx Breast Biopsy: No Hx Abdominal Surgery: No Hx Appendectomy: No Hx Cholecystectomy: No Hx Genitourinary Surgery: No Hx Section: No Hx Orthopedic Surgery: No Hx Hysterectomy: No Other Surgical History: right inguinal hernia repair in 2005, tonsillectomy Anesthesia Reaction: No - PPD History Previous Implant?: Yes Documented Results: Negative w/o proof Implanted On Prior [facility] Admission?: No Date: 10/17/16 Results: 0 mm PPD to be Administered?: Yes - Smoking Cessation Smoking history: Current every day smoker Have you smoked in the past 12 months: Yes Aproximately how many cigarettes per day: 10 Hx Chewing Tobacco Use: No Initiated information on smoking cessation: Yes 'Breaking Loose' booklet given: 04/06/19 - Substances abused Heroin Substance route: Injection Frequency: Daily Amount used: 1 gram Age of first use: 22 Date of last use: 04/05/19 Alcohol Substance route: Oral Frequency: Daily Amount used: 1 pint of vodka Age of first use: 20 Date of last use: 04/05/19 Admission Physical Exam [facility] - Vital Signs Vital Signs: Vital Signs - 24 hr 04/06/19 08:50 Temperature 98.2 F Pulse Rate 86 Respiratory 18 Rate Blood Pressure 101/69 - Physical General Appearance: Yes: Moderate Distress, Irritable, Sweating, Anxious HEENTM: Yes: EOMI, Hearing grossly Normal, Normal ENT Inspection, Normocephalic , Normal Voice, [place], Pharynx Normal, Tm's normal Respiratory: Yes: Chest Non-Tender, Lungs Clear, Normal Breath Sounds, No Respiratory Distress, No Accessory Muscle Use Neck: Yes: No masses,lesions,Nodules, Supple, Trachea in good position Breast: Yes: Within Normal Limits Cardiology: Yes: Regular Rhythm, S1, S2, Tachycardia Abdominal: Yes: Flat, Soft, Increased Bowel Sounds. No: Guarding, Rebound, Tenderness Genitourinary: Yes: Within Normal Limits Back: Yes: Normal Inspection Musculoskeletal: Yes: full range of Motion, Gait Steady, Pelvis Stable Extremities: Yes: Normal Capillary Refill, Normal Inspection, Normal Range of Motion, Non-Tender Neurological: Yes: regulatory submissions associate II-XII NML intact, Fully Oriented, Alert, Motor Strength 5/5, Normal Mood/Affect, Normal Response Integumentary: Yes: Normal Color, Warm Lymphatic: Yes: Within Normal Limits - Diagnostic (1) Opioid dependence with withdrawal Current Visit: Yes Status: Acute (2) Anxious mood Current Visit: Yes Status: Acute (3) Alcohol dependence with uncomplicated withdrawal Current Visit: Yes Status: Chronic (4) Cannabis dependence, uncomplicated Current Visit: Yes Status: Chronic (5) Nicotine dependence Current Visit: Yes Status: Chronic Qualifiers: Nicotine product type: cigarettes Substance use status: uncomplicated Qualified Code(s): F17.210 - Nicotine dependence, cigarettes, uncomplicated (6) Bipolar disorder Current Visit: Yes Status: Suspected Qualifiers: Active/Remission status: in full remission Most recent bipolar episode type : mixed Qualified Code(s): F31.78 - Bipolar disorder, in full remission, most recent episode mixed Screened but not Admitted - Documentation of Visit Screened but not Admitted: No Inpatient Rehab Admission - Rehab Decision to Admit Inpatient rehab admission?: No
[2019-04-06] MEDS ORDERED: cloNIDine HCL 0.1 MG TABLET PO PRN (09:20)
[2019-04-06] MEDS ORDERED: MAGNESIUM CITRATE 300 ML BOTTLE PO PRN (09:20)
[2019-04-06] MEDS ORDERED: METHOCARBAMOL 500 MG TABLET PO PRN (09:20)
[2019-04-06] MEDS ORDERED: ACETAMINOPHEN 325 MG TABLET (FP) PO PRN ×2 (09:20)
[2019-04-06] MEDS ORDERED: MELATONIN 5 MG TABLETS PO PRN (09:20)
[2019-04-06] MEDS ORDERED: MAG HYDROX/AL HYDROX/SIMETH 30 ML UNIT-DOSE CUP PO PRN (09:20)
[2019-04-06] MEDS ORDERED: hydrOXYzine PAMOATE 25 MG CAPSULE (FP) PO PRN (09:20)
[2019-04-06] MEDS ORDERED: MENTHOL/PHENOL 1 EACH UD MM PRN (09:20)
[2019-04-06] MEDS ORDERED: MAGNESIUM HYDROX 2400MG/30ML ORAL SUSPENSION 30 ML CUP PO PRN (09:20)
[2019-04-06] MEDS ORDERED: IBUPROFEN 400 MG TABLET (FP) PO PRN (09:20)
[2019-04-06] MEDS ORDERED: BISMUTH SUBSALICYLATE 262 MG/15 ML BTL PO PRN (09:20)
[2019-04-06] MEDS ORDERED: METHADONE HCL 10 MG TABLET (FOR DETOX USE ONLY) PO ONE (10:35)
[2019-04-06] MEDS: NICOTINE 14 MG/24 HOURS TOPICAL PATCH TD SCH (11:55)
[2019-04-06] MEDS: PRENATAL VITAMINS W/ FOLIC ACID TABLET (FP) PO SCH (11:55)
[2019-04-06] MEDS: LORazepam 2 MG TABLET PO SCH ×3 (11:56→22:04)
[2019-04-06 15:29] LABS: HEMATOCRIT 43.8 % (35.4-49); HEMOGLOBIN 14.4 GM/dL (11.7-16.9); MCH 28.7 pg (25.7-33.7); MCHC 32.8 g/dl (32.0-35.9); MEAN CELL VOLUME 87.6 fl (80-96); MEAN PLT VOLUME 10.2 fl (7.5-11.1); PLATELET COUNT 269 K/MM3 (134-434); RDW 13.3 % (11.9-15.9); WHITE BLOOD COUNT 14.6 K/mm3 (4.0-10.0)
[2019-04-06] MEDS: LORazepam 1 MG TABLET PO PRN ×2 (15:34→19:36)
[2019-04-06 15:38] LABS: BILIRUBIN,TOTAL 0.3 mg/dL (0.2-1); CALCIUM 9.7 mg/dL (8.5-10.1); POTASSIUM 4.3 mmol/L (3.5-5.1)
[2019-04-06] MEDS ORDERED: THIAMINE HCL 100 MG TABLET (FP) PO SCH (22:00)
[2019-04-07] MEDS: LORazepam 2 MG TABLET PO SCH ×2 (06:02→10:09)
[2019-04-07] MEDS ORDERED: METHADONE HCL 5 MG TABLET (FOR DETOX USE ONLY) ONE (08:36)
[2019-04-07] MEDS ORDERED: METHADONE HCL 10 MG TABLET (FOR DETOX USE ONLY) ONE (08:37)
[2019-04-07 09:19] VITALS: BP 125/92; PULSE 89; TEMP 97.9
[2019-04-07] MEDS ORDERED: METHADONE (DETOX) 20 MG, METHADONE (DETOX) 5 MG PO ONE (10:00)
[2019-04-07] MEDS: NICOTINE 14 MG/24 HOURS TOPICAL PATCH TD SCH (10:09)
[2019-04-07] MEDS: PRENATAL VITAMINS W/ FOLIC ACID TABLET (FP) PO SCH (10:09)
--- NOTE | 2019-04-07 11:07 | PN ---
S CIWA - CIWA Score Nausea/Vomitin-Mild Nausea/No Vomiting Muscle Tremors: 2 Anxiety: 2 Agitation: 2 Paroxysmal Sweats: No Perspiration Orientation: 0-Oriented Tacttile Disturbances: 1-Very Mild Itch/Numbness Auditory Disturbances: 0-None Visual Disturbances: 0-None Headache: 2-Mild CIWA-Ar Total Score: 10 [facility] COWS - Scale Resting Pulse: 1= [place] 81-100 Sweatin= No chills or Flushing Restless Observation: 1= Difficult to Sit Still Pupil Size: 1= Pupils >than Normal Bone or Joint Aches: 1= Mild Discomfort Runny Nose/ Eye Tearin= Nasal Congestion GI Upset > 30mins: 1= Stomach Cramp Tremor Observation of Outstretched Hands: 2= Slight Tremor Visible Yawning Observation: 1= 1-2x During Session Anxiety or Irritability: 2=Irritable/Anxious Goose Flesh Skin: 0=Smooth Skin COWS Score: 11 S Progress Note (SOAP) Subjective: alert,irritable,anxious,interrupted sleep,tremor,pain n the body and back Objective: 04/07/19 11:05 Vital Signs Temperature 97.9 F 04/07/19 09:19 Pulse Rate 89 04/07/19 09:19 Respiratory Rate 18 04/07/19 09:19 Blood Pressure 125/92 04/07/19 09:19 O2 Sat by Pulse Oximetry (%) 04/07/19 11:06 Laboratory Last Values WBC 14.6 K/mm3 (4.0-10.0) H 04/06/19 09:40 RBC 5.00 M/mm3 (4.00-5.60) 04/06/19 09:40 Hgb 14.4 GM/dL (11.7-16.9) 04/06/19 09:40 Hct 43.8 % (35.4-49) D 04/06/19 09:40 MCV 87.6 fl (80-96) 04/06/19 09:40 MCH 28.7 pg (25.7-33.7) 04/06/19 09:40 MCHC 32.8 g/dl (32.0-35.9) 04/06/19 09:40 RDW 13.3 % (11.9-15.9) 04/06/19 09:40 Plt Count 269 K/MM3 (134-434) D 04/06/19 09:40 MPV 10.2 fl (7.5-11.1) 04/06/19 09:40 Sodium 136 mmol/L (136-145) 04/06/19 09:40 Potassium 4.3 mmol/L (3.5-5.1) 04/06/19 09:40 Chloride 100 mmol/L (98-107) 04/06/19 09:40 Carbon Dioxide 27 mmol/L (21-32) 04/06/19 09:40 Anion Gap 9 MMOL/L (8-16) 04/06/19 09:40 BUN 12.0 mg/dL (7-18) 04/06/19 09:40 Creatinine 1.0 mg/dL (0.55-1.3) 04/06/19 09:40 Est GFR (CKD-EPI)AfAm 114.91 04/06/19 09:40 Est GFR (CKD-EPI)NonAf 99.15 04/06/19 09:40 Random Glucose 85 mg/dL (74-106) 04/06/19 09:40 Calcium 9.7 mg/dL (8.5-10.1) 04/06/19 09:40 Total Bilirubin 0.3 mg/dL (0.2-1) 04/06/19 09:40 AST 82 U/L (15-37) H 04/06/19 09:40 ALT 132 U/L (13-61) H 04/06/19 09:40 Alkaline Phosphatase 163 U/L (45-117) H 04/06/19 09:40 Total Protein 8.0 g/dl (6.4-8.2) 04/06/19 09:40 Albumin 4.0 g/dl (3.4-5.0) 04/06/19 09:40 Assessment: 04/07/19 11:06 withdrawal symptom Plan: continue detox methadone and ativan regimen,encourage oral fluid,wbc 14,600
--- NOTE | 2019-04-07 11:12 | PN ---
[facility] Progress Note Note: patient did not want to complete treatment,all attempts to convince patient to stay with no avail,risk of relapsing is high, patient understood,signed release ama,advise to call 911 if not feeling well
--- NOTE | 2019-04-07 11:18 | DS ---
[facility] Detox Discharge Summary Admission Date: 04/06/19 Discharge Date: 04/07/19 - History Present History: Alcohol Dependence, Opioid Dependence Additional Comments: patient signed release ama - Physical Exam Results Vital Signs: Vital Signs Temperature 97.9 F 04/07/19 09:19 Pulse Rate 89 04/07/19 09:19 Respiratory Rate 18 04/07/19 09:19 Blood Pressure 125/92 04/07/19 09:19 O2 Sat by Pulse Oximetry (%) Pertinent Admission Physical Exam Findings: withdrawal signs and symptom Laboratory Last Values WBC 14.6 K/mm3 (4.0-10.0) H 04/06/19 09:40 RBC 5.00 M/mm3 (4.00-5.60) 04/06/19 09:40 Hgb 14.4 GM/dL (11.7-16.9) 04/06/19 09:40 Hct 43.8 % (35.4-49) D 04/06/19 09:40 MCV 87.6 fl (80-96) 04/06/19 09:40 MCH 28.7 pg (25.7-33.7) 04/06/19 09:40 MCHC 32.8 g/dl (32.0-35.9) 04/06/19 09:40 RDW 13.3 % (11.9-15.9) 04/06/19 09:40 Plt Count 269 K/MM3 (134-434) D 04/06/19 09:40 MPV 10.2 fl (7.5-11.1) 04/06/19 09:40 Sodium 136 mmol/L (136-145) 04/06/19 09:40 Potassium 4.3 mmol/L (3.5-5.1) 04/06/19 09:40 Chloride 100 mmol/L (98-107) 04/06/19 09:40 Carbon Dioxide 27 mmol/L (21-32) 04/06/19 09:40 Anion Gap 9 MMOL/L (8-16) 04/06/19 09:40 BUN 12.0 mg/dL (7-18) 04/06/19 09:40 Creatinine 1.0 mg/dL (0.55-1.3) 04/06/19 09:40 Est GFR (CKD-EPI)AfAm 114.91 04/06/19 09:40 Est GFR (CKD-EPI)NonAf 99.15 04/06/19 09:40 Random Glucose 85 mg/dL (74-106) 04/06/19 09:40 Calcium 9.7 mg/dL (8.5-10.1) 04/06/19 09:40 Total Bilirubin 0.3 mg/dL (0.2-1) 04/06/19 09:40 AST 82 U/L (15-37) H 04/06/19 09:40 ALT 132 U/L (13-61) H 04/06/19 09:40 Alkaline Phosphatase 163 U/L (45-117) H 04/06/19 09:40 Total Protein 8.0 g/dl (6.4-8.2) 04/06/19 09:40 Albumin 4.0 g/dl (3.4-5.0) 04/06/19 09:40 - Medication Discharge Medications: Ambulatory Orders NK [No Known Home Medication] 04/06/19 - Diagnosis (1) Opioid dependence with withdrawal Current Visit: Yes Status: Acute (2) Alcohol dependence with uncomplicated withdrawal Current Visit: Yes Status: Chronic (3) Nicotine dependence Current Visit: Yes Status: Chronic Qualifiers: Nicotine product type: cigarettes Substance use status: uncomplicated Qualified Code(s): F17.210 - Nicotine dependence, cigarettes, uncomplicated (4) IVDU (intravenous drug user) Current Visit: Yes Status: Acute - AMA Did Patient Leave Against Medical Advice: Yes
[2019-04-08] MEDS ORDERED: LORazepam 1 MG TABLET PO SCH (05:00)
[2019-04-08] MEDS ORDERED: METHADONE HCL 10 MG TABLET (FOR DETOX USE ONLY) PO ONE (10:00)
[2019-04-09] MEDS ORDERED: LORazepam 0.5 MG TABLET PO PRN
[2019-04-09] MEDS ORDERED: LORazepam 0.5 MG TABLET PO SCH (05:00)
[2019-04-09] MEDS ORDERED: METHADONE (DETOX) 10 MG, METHADONE (DETOX) 5 MG PO ONE (10:00)
[2019-04-10] MEDS ORDERED: LORazepam 0.5 MG TABLET PO ONE (05:00)
[2019-04-10] MEDS ORDERED: METHADONE HCL 10 MG TABLET (FOR DETOX USE ONLY) PO ONE (10:00)
[2019-04-11] MEDS ORDERED: METHADONE HCL 5 MG TABLET (FOR DETOX USE ONLY) PO ONE (06:00)
== END 2019-04-07 11:45 | disposition left against medical advice (07) | DRG 770 ==
LOC: YASAS 08:39 → Y6N 09:58
PROVIDERS: ADMIT Allergy & Immunology; ATTEND Allergy & Immunology
PROC: HZ2ZZZZ Detoxification Services for Substance Abuse Treatment (ICD-10-PCS; principal; 2019-04-06)
DX: F11.23 Opioid dependence with withdrawal (principal); F10.230 Alcohol dependence with withdrawal, uncomplicated; F12.20 Cannabis dependence, uncomplicated; F17.210 Nicotine dependence, cigarettes, uncomplicated; F31.78 Bipolar disorder, in full remission, most recent episode mixed; F41.0 Panic disorder [episodic paroxysmal anxiety]; F41.9 Anxiety disorder, unspecified; D64.9 Anemia, unspecified
CPT/HCPCS: 36415; 80053; 85027; 86593

== ENCOUNTER 2021-08-10 10:56 | Inpatient (IN) | payer OTHER ==
[2021-08-10] MEDS ORDERED: BENZOCAINE/MENTHOL (CHLORASEPTIC ) LOZENGE MM PRN (11:31)
[2021-08-10] MEDS ORDERED: MAGNESIUM CITRATE 300 ML BOTTLE PO PRN (11:31)
[2021-08-10] MEDS ORDERED: LOPERAMIDE HCL 2 MG CAPSULE PO PRN (11:31)
[2021-08-10] MEDS ORDERED: BISMUTH SUBSALICYLATE 262 MG/15 ML BTL PO PRN (11:31)
[2021-08-10] MEDS ORDERED: ONDANSETRON *ODT* 4 MG TABLET SL PRN (11:31)
[2021-08-10] MEDS ORDERED: MAGNESIUM HYDROX 2400MG/30ML ORAL SUSPENSION 30 ML CUP PO PRN (11:31)
[2021-08-10] MEDS ORDERED: DICYCLOMINE HCL 10 MG CAPSULE PO PRN (11:31)
[2021-08-10] MEDS ORDERED: ACETAMINOPHEN 325 MG TABLET (FP) PO PRN ×2 (11:31)
[2021-08-10] MEDS ORDERED: MAG HYDROX/AL HYDROX/SIMETH 30 ML UNIT-DOSE CUP PO PRN (11:31)
[2021-08-10] MEDS ORDERED: METHOCARBAMOL 500 MG TABLET PO PRN (11:31)
[2021-08-10] MEDS ORDERED: IBUPROFEN 400 MG TABLET (FP) PO PRN (11:31)
[2021-08-10] MEDS ORDERED: methaDONE 80 MG, methaDONE 20 MG PO SCH (15:30)
[2021-08-10] MEDS: diazePAM 5 MG TABLET PO SCH ×3 (15:30→23:31)
[2021-08-10] MEDS ORDERED: methaDONE HCL 40 MG DISPERSABLE TABLET PO SCH (15:30)
[2021-08-10] MEDS: hydrOXYzine PAMOATE 25 MG CAPSULE (FP) PO SCH ×3 (15:37→23:29)
[2021-08-10] MEDS: diazePAM 5 MG TABLET PO PRN (15:38)
[2021-08-10] MEDS: NICOTINE 10 MG CARTRIDGE (INHALER) IH PRN (15:40)
[2021-08-10] MEDS: NICOTINE 14 MG/24 HOURS TOPICAL PATCH TD SCH (16:03)
[2021-08-10 17:34] LABS: HEMATOCRIT 41.6 % (35.4-49); HEMOGLOBIN 13.3 GM/dL (11.7-16.9); MCH 28.2 pg (25.7-33.7); MEAN CELL VOLUME 88.1 fl (80-96); MEAN PLT VOLUME 10.1 fl (7.5-11.1); PLATELET COUNT 255 10^3/uL (134-434); RBC 4.72 M/mm3 (4.00-5.60); RDW 13.5 % (11.9-15.9); WHITE BLOOD COUNT 11.9 K/mm3 (4.0-10.0)
[2021-08-10 17:40] LABS: ALBUMIN 3.9 g/dl (3.4-5.0); BLOOD UREA NITROGEN 18.8 mg/dL (7-18); CALCIUM 9.8 mg/dL (8.5-10.1)
[2021-08-10 17:46] LABS: BILIRUBIN,TOTAL 0.9 mg/dL (0.2-1)
[2021-08-10 17:47] LABS: CREATININE 1.1 mg/dL (0.55-1.3); TOT PROT 7.3 g/dl (6.4-8.2)
[2021-08-10 19:39] VITALS: BMI 23.4
[2021-08-10] MEDS: MELATONIN 5 MG TABLETS PO SCH (23:29)
[2021-08-10] MEDS: THIAMINE HCL 100 MG TABLET (FP) PO SCH (23:30)
[2021-08-11] MEDS ORDERED: methaDONE HCL 10 MG TABLET ONE (05:46)
[2021-08-11] MEDS ORDERED: methaDONE HCL 40 MG DISPERSABLE TABLET ONE (05:47)
[2021-08-11] MEDS: diazePAM 5 MG TABLET PO SCH ×4 (06:21→22:46)
[2021-08-11] MEDS: methaDONE 80 MG, methaDONE 20 MG PO SCH (06:21)
[2021-08-11] MEDS: hydrOXYzine PAMOATE 25 MG CAPSULE (FP) PO SCH ×5 (06:22→22:46)
[2021-08-11] MEDS: NICOTINE 10 MG CARTRIDGE (INHALER) IH PRN (08:41)
[2021-08-11] MEDS: PRENATAL VITAMINS W/ FOLIC ACID TABLET (FP) PO SCH (10:18)
[2021-08-11] MEDS: NICOTINE 14 MG/24 HOURS TOPICAL PATCH TD SCH (10:19)
[2021-08-11] MEDS: diazePAM 5 MG TABLET PO PRN (20:28)
[2021-08-11] MEDS: MELATONIN 5 MG TABLETS PO SCH (22:46)
[2021-08-11] MEDS: THIAMINE HCL 100 MG TABLET (FP) PO SCH (22:46)
[2021-08-12] MEDS ORDERED: methaDONE HCL 10 MG TABLET ONE (04:41)
[2021-08-12] MEDS ORDERED: methaDONE HCL 40 MG DISPERSABLE TABLET ONE (04:42)
[2021-08-12] MEDS: methaDONE 80 MG, methaDONE 20 MG PO SCH (06:45)
[2021-08-12] MEDS: hydrOXYzine PAMOATE 25 MG CAPSULE (FP) PO SCH ×5 (06:46→22:15)
[2021-08-12] MEDS: diazePAM 5 MG TABLET PO SCH ×3 (06:46→22:15)
[2021-08-12] MEDS: diazePAM 5 MG TABLET PO PRN ×2 (10:27→17:31)
[2021-08-12] MEDS: PRENATAL VITAMINS W/ FOLIC ACID TABLET (FP) PO SCH (10:28)
[2021-08-12] MEDS: NICOTINE 14 MG/24 HOURS TOPICAL PATCH TD SCH (10:28)
[2021-08-12] MEDS: THIAMINE HCL 100 MG TABLET (FP) PO SCH (22:15)
[2021-08-12] MEDS: MELATONIN 5 MG TABLETS PO SCH (22:15)
[2021-08-13 00:07] LABS: SARS-CoV-2 NAA Not Detected (Not Detected)
[2021-08-13] MEDS ORDERED: methaDONE HCL 10 MG TABLET ONE (04:56)
[2021-08-13] MEDS ORDERED: methaDONE HCL 40 MG DISPERSABLE TABLET ONE (04:56)
[2021-08-13] MEDS: methaDONE 80 MG, methaDONE 20 MG PO SCH (06:03)
[2021-08-13] MEDS: diazePAM 5 MG TABLET PO SCH ×2 (06:04→18:35)
[2021-08-13] MEDS: hydrOXYzine PAMOATE 25 MG CAPSULE (FP) PO SCH ×5 (06:04→22:26)
[2021-08-13] MEDS: NICOTINE 10 MG CARTRIDGE (INHALER) IH PRN ×2 (06:39→23:23)
[2021-08-13] MEDS: diazePAM 5 MG TABLET PO PRN (10:22)
[2021-08-13] MEDS: PRENATAL VITAMINS W/ FOLIC ACID TABLET (FP) PO SCH (10:22)
[2021-08-13] MEDS: NICOTINE 14 MG/24 HOURS TOPICAL PATCH TD SCH (10:23)
[2021-08-13 22:19] LABS: PH,URINE 8.5 (5.0-8.0); URINE APPEARANCE CLEAR; URINE BILIRUBIN NEGATIVE (NEGATIVE); URINE COLOR YELLOW; URINE GLUCOSE (UA) NEGATIVE (NEGATIVE); URINE KETONE NEGATIVE (NEGATIVE); URINE LEUK ESTERASE NEGATIVE (NEGATIVE); URINE NITRITE NEGATIVE (NEGATIVE); URINE PROTEIN NEGATIVE (NEGATIVE)
[2021-08-13] MEDS: MELATONIN 5 MG TABLETS PO SCH (22:26)
[2021-08-13] MEDS: THIAMINE HCL 100 MG TABLET (FP) PO SCH (22:26)
[2021-08-14] MEDS ORDERED: methaDONE HCL 40 MG DISPERSABLE TABLET ONE (04:46)
[2021-08-14] MEDS ORDERED: methaDONE HCL 10 MG TABLET ONE (04:46)
[2021-08-14] MEDS: methaDONE 80 MG, methaDONE 20 MG PO SCH (05:53)
[2021-08-14] MEDS: NICOTINE 10 MG CARTRIDGE (INHALER) IH PRN (05:53)
[2021-08-14] MEDS: hydrOXYzine PAMOATE 25 MG CAPSULE (FP) PO SCH ×2 (05:53→09:28)
[2021-08-14] MEDS ORDERED: diazePAM 5 MG TABLET PO ONE (06:00)
[2021-08-14 08:42] VITALS: BP 121/64; PULSE 68; TEMP 96.3
[2021-08-14] MEDS: NICOTINE 14 MG/24 HOURS TOPICAL PATCH TD SCH (09:27)
[2021-08-14] MEDS: PRENATAL VITAMINS W/ FOLIC ACID TABLET (FP) PO SCH (09:27)
[2021-08-14 12:08] LABS: BASO % 0.4 % (0-2.0); EOS % 2.6 % (0-4.5); HEMATOCRIT 42.9 % (35.4-49); HEMOGLOBIN 14.2 GM/dL (11.7-16.9); LYMPH % 30.1 % (8-40); MCH 28.7 pg (25.7-33.7); MEAN PLT VOLUME 10.2 fl (7.5-11.1); NEUT % 59.9 % (42.8-82.8); PLATELET COUNT 244 10^3/uL (134-434); RBC 4.93 M/mm3 (4.00-5.60); RDW 13.4 % (11.9-15.9)
[2021-08-14 12:40] LABS: GLUCOSE,FASTING 101 mg/dL (74-106)
[2021-08-14 12:42] LABS: SGOT/AST 30 U/L (15-37); SGPT/ALT 60 U/L (13-61)
[2021-08-14 12:45] LABS: ALK PHOS 115 U/L (45-117)
== END 2021-08-14 09:26 | disposition home or self-care (01) | DRG 897 ==
LOC: YASAS 10:56 → Y3N 15:10
PROVIDERS: ADMIT Allergy & Immunology; ATTEND Allergy & Immunology
PROC: HZ2ZZZZ Detoxification Services for Substance Abuse Treatment (ICD-10-PCS; principal; 2021-08-10)
DX: F13.230 Sedative, hypnotic or anxiolytic dependence with withdrawal, uncomplicated (principal); F11.20 Opioid dependence, uncomplicated; F12.20 Cannabis dependence, uncomplicated; F17.210 Nicotine dependence, cigarettes, uncomplicated; F19.24 Other psychoactive substance dependence with psychoactive substance-induced mood disorder; F31.9 Bipolar disorder, unspecified; F39 Unspecified mood [affective] disorder; D72.829 Elevated white blood cell count, unspecified; E86.0 Dehydration; R73.9 Hyperglycemia, unspecified; R74.01 Elevation of levels of liver transaminase levels; R74.8 Abnormal levels of other serum enzymes; Z86.69 Personal history of other diseases of the nervous system and sense organs
CPT/HCPCS: 36415; 80053; 81003; 82947; 83036; 84075; 84450; 84460; 85025; 85027; 86780; 87811; C9803-CS; U0003; U0005

== ENCOUNTER 2022-02-05 10:08 | Inpatient (IN) | payer OTHER ==
[2022-02-05 10:44] VITALS: BMI 25.1
[2022-02-05] MEDS ORDERED: METHOCARBAMOL 500 MG TABLET PO PRN (11:06)
[2022-02-05] MEDS ORDERED: MAG HYDROX/AL HYDROX/SIMETH 30 ML UNIT-DOSE CUP PO PRN (11:06)
[2022-02-05] MEDS ORDERED: BENZOCAINE/MENTHOL (CHLORASEPTIC ) LOZENGE MM PRN (11:06)
[2022-02-05] MEDS ORDERED: MAGNESIUM CITRATE 300 ML BOTTLE PO PRN (11:06)
[2022-02-05] MEDS ORDERED: ONDANSETRON *ODT* 4 MG TABLET SL PRN (11:06)
[2022-02-05] MEDS ORDERED: ACETAMINOPHEN 325 MG TABLET (FP) PO PRN ×2 (11:06)
[2022-02-05] MEDS ORDERED: IBUPROFEN 400 MG TABLET (FP) PO PRN (11:06)
[2022-02-05] MEDS ORDERED: BISMUTH SUBSALICYLATE 262 MG/15 ML BTL PO PRN (11:06)
[2022-02-05] MEDS ORDERED: DICYCLOMINE HCL 10 MG CAPSULE PO PRN (11:06)
[2022-02-05] MEDS ORDERED: LOPERAMIDE HCL 2 MG CAPSULE PO PRN (11:06)
[2022-02-05] MEDS ORDERED: NALOXONE HCL (KLOXXADO) 8 MG SPRAY NS PRN (11:06)
[2022-02-05] MEDS ORDERED: MAGNESIUM HYDROX 2400MG/30ML ORAL SUSPENSION 30 ML CUP PO PRN (11:06)
[2022-02-05] MEDS ORDERED: IBUPROFEN 600 MG TABLET (FP) PO PRN (11:06)
[2022-02-05] MEDS ORDERED: diazePAM 5 MG TABLET ONE (11:30)
[2022-02-05] MEDS: diazePAM 5 MG TABLET PO SCH ×3 (11:31→22:28)
[2022-02-05] MEDS: NICOTINE 14 MG/24 HOURS TOPICAL PATCH TD SCH (12:18)
[2022-02-05] MEDS: PRENATAL VITAMINS W/ FOLIC ACID TABLET (FP) PO SCH (12:19)
[2022-02-05] MEDS: NICOTINE 10 MG CARTRIDGE (INHALER) IH PRN (12:20)
[2022-02-05] MEDS: hydrOXYzine PAMOATE 25 MG CAPSULE (FP) PO SCH ×3 (13:24→22:28)
[2022-02-05 15:14] LABS: HEMATOCRIT 42.1 % (35.4-49); HEMOGLOBIN 13.8 GM/dL (11.7-16.9); MCH 28.8 pg (25.7-33.7); MCHC 32.7 g/dl (32.0-35.9); MEAN CELL VOLUME 87.9 fl (80-96); MEAN PLT VOLUME 10.4 fl (7.5-11.1); PLATELET COUNT 300 10^3/uL (134-434); RBC 4.79 M/mm3 (4.00-5.60); RDW 13.3 % (11.9-15.9); WHITE BLOOD COUNT 12.8 K/mm3 (4.0-10.0)
[2022-02-05 15:40] LABS: ALBUMIN 3.8 g/dl (3.4-5.0); CALCIUM 9.7 mg/dL (8.5-10.1)
[2022-02-05 15:41] LABS: BLOOD UREA NITROGEN 14.4 mg/dL (7-18)
[2022-02-05 15:45] LABS: BILIRUBIN,TOTAL 0.3 mg/dL (0.2-1); TOT PROT 7.5 g/dl (6.4-8.2)
[2022-02-05] MEDS: MELATONIN 5 MG TABLETS PO SCH (22:28)
[2022-02-05] MEDS: THIAMINE HCL 100 MG TABLET (FP) PO SCH (22:28)
[2022-02-06] MEDS: hydrOXYzine PAMOATE 25 MG CAPSULE (FP) PO SCH ×2 (06:37→10:49)
[2022-02-06] MEDS: diazePAM 5 MG TABLET PO SCH ×4 (06:37→22:18)
[2022-02-06] MEDS: methaDONE HCL 40 MG DISPERSABLE TABLET PO SCH (10:31)
[2022-02-06] MEDS: hydrOXYzine PAMOATE 25 MG CAPSULE (FP) PO PRN (10:32)
[2022-02-06] MEDS: PRENATAL VITAMINS W/ FOLIC ACID TABLET (FP) PO SCH (10:32)
[2022-02-06] MEDS: NICOTINE 14 MG/24 HOURS TOPICAL PATCH TD SCH (10:32)
[2022-02-06] MEDS: MELATONIN 5 MG TABLETS PO SCH (22:17)
[2022-02-06] MEDS: THIAMINE HCL 100 MG TABLET (FP) PO SCH (22:18)
[2022-02-07] MEDS: diazePAM 5 MG TABLET PO SCH ×3 (07:44→22:23)
[2022-02-07] MEDS: methaDONE HCL 40 MG DISPERSABLE TABLET PO SCH (07:47)
[2022-02-07] MEDS: PRENATAL VITAMINS W/ FOLIC ACID TABLET (FP) PO SCH (10:13)
[2022-02-07] MEDS: NICOTINE 14 MG/24 HOURS TOPICAL PATCH TD SCH (10:14)
[2022-02-07] MEDS: NICOTINE 10 MG CARTRIDGE (INHALER) IH PRN (10:14)
[2022-02-07] MEDS: diazePAM 5 MG TABLET PO PRN (10:14)
[2022-02-07 15:20] LABS: HEMATOCRIT 41.1 % (35.4-49); HEMOGLOBIN 13.4 GM/dL (11.7-16.9); MCH 28.9 pg (25.7-33.7); MCHC 32.5 g/dl (32.0-35.9); MEAN CELL VOLUME 88.8 fl (80-96); MEAN PLT VOLUME 9.8 fl (7.5-11.1); PLATELET COUNT 245 10^3/uL (134-434); RBC 4.63 M/mm3 (4.00-5.60); RDW 13.5 % (11.9-15.9); WHITE BLOOD COUNT 7.2 K/mm3 (4.0-10.0)
[2022-02-07] MEDS: THIAMINE HCL 100 MG TABLET (FP) PO SCH (22:23)
[2022-02-07] MEDS: MELATONIN 5 MG TABLETS PO SCH (22:23)
[2022-02-08] MEDS: diazePAM 5 MG TABLET PO SCH ×2 (05:35→18:32)
[2022-02-08] MEDS: methaDONE HCL 40 MG DISPERSABLE TABLET PO SCH (05:36)
[2022-02-08] MEDS: diazePAM 5 MG TABLET PO PRN (10:41)
[2022-02-08] MEDS: PRENATAL VITAMINS W/ FOLIC ACID TABLET (FP) PO SCH (10:41)
[2022-02-08] MEDS: NICOTINE 14 MG/24 HOURS TOPICAL PATCH TD SCH (11:14)
[2022-02-08] MEDS: NICOTINE 10 MG CARTRIDGE (INHALER) IH PRN (18:33)
[2022-02-08] MEDS: MELATONIN 5 MG TABLETS PO SCH (22:38)
[2022-02-08] MEDS: THIAMINE HCL 100 MG TABLET (FP) PO SCH (22:38)
[2022-02-09] MEDS ORDERED: diazePAM 5 MG TABLET PO ONE (06:00)
[2022-02-09] MEDS: hydrOXYzine PAMOATE 25 MG CAPSULE (FP) PO PRN (07:54)
[2022-02-09] MEDS: methaDONE HCL 40 MG DISPERSABLE TABLET PO SCH (07:56)
[2022-02-09] MEDS: PRENATAL VITAMINS W/ FOLIC ACID TABLET (FP) PO SCH (09:06)
[2022-02-09] MEDS: NICOTINE 14 MG/24 HOURS TOPICAL PATCH TD SCH (09:06)
[2022-02-09 09:07] VITALS: BP 100/66; PULSE 57; RESP 18; TEMP 97.8
== END 2022-02-09 09:18 | disposition home or self-care (01) | DRG 773 ==
LOC: YASAS 10:08 → Y3N 11:58
PROVIDERS: ADMIT Allergy & Immunology; ATTEND Surgery
PROC: HZ2ZZZZ Detoxification Services for Substance Abuse Treatment (ICD-10-PCS; principal; 2022-02-05)
DX: F13.230 Sedative, hypnotic or anxiolytic dependence with withdrawal, uncomplicated (principal); F11.20 Opioid dependence, uncomplicated; F14.20 Cocaine dependence, uncomplicated; F12.20 Cannabis dependence, uncomplicated; F17.210 Nicotine dependence, cigarettes, uncomplicated; F19.282 Other psychoactive substance dependence with psychoactive substance-induced sleep disorder; F19.280 Other psychoactive substance dependence with psychoactive substance-induced anxiety disorder; F19.24 Other psychoactive substance dependence with psychoactive substance-induced mood disorder; F39 Unspecified mood [affective] disorder; F41.9 Anxiety disorder, unspecified; F32.A Depression, unspecified; Z59.00 Homelessness unspecified; Z56.0 Unemployment, unspecified
CPT/HCPCS: 36415; 80053; 85027; 86780; C9803-CS; Q0162; U0003; U0005

== ENCOUNTER 2022-12-12 23:34 | Inpatient (IN) | payer OTHER ==
[2022-12-13 00:35] VITALS: BMI 22.3
[2022-12-13] MEDS ORDERED: DICYCLOMINE HCL 10 MG CAPSULE PO PRN (01:02)
[2022-12-13] MEDS ORDERED: POLYETHYLENE GLYCOL (HEALTHYLAX) 3350 17 GM PACKET PO PRN (01:02)
[2022-12-13] MEDS ORDERED: BENZOCAINE/MENTHOL (CHLORASEPTIC ) LOZENGE MM PRN (01:02)
[2022-12-13] MEDS ORDERED: NALOXONE HCL (KLOXXADO) 8 MG SPRAY NS PRN (01:02)
[2022-12-13] MEDS ORDERED: LOPERAMIDE HCL 2 MG CAPSULE PO PRN (01:02)
[2022-12-13] MEDS ORDERED: IBUPROFEN 600 MG TABLET (FP) PO PRN (01:02)
[2022-12-13] MEDS ORDERED: IBUPROFEN 400 MG TABLET (FP) PO PRN (01:02)
[2022-12-13] MEDS ORDERED: MAG HYDROX/AL HYDROX/SIMETH 30 ML UNIT-DOSE CUP PO PRN (01:02)
[2022-12-13] MEDS ORDERED: ACETAMINOPHEN 325 MG TABLET (FP) PO PRN (01:02)
[2022-12-13] MEDS ORDERED: NALOXONE HCL 0.4 MG/ML VIAL IM PRN (01:02)
[2022-12-13] MEDS ORDERED: MAGNESIUM HYDROX 2400MG/30ML ORAL SUSPENSION 30 ML CUP PO PRN (01:02)
[2022-12-13] MEDS ORDERED: hydrOXYzine PAMOATE 25 MG CAPSULE (FP) PO PRN (01:02)
[2022-12-13] MEDS ORDERED: BENZONATATE 200 MG CAPSULE PO PRN (01:02)
[2022-12-13] MEDS ORDERED: guaiFENesin 600 MG TABLET.ER (FP) PO PRN (01:02)
[2022-12-13] MEDS ORDERED: ONDANSETRON *ODT* 4 MG TABLET SL PRN (01:02)
[2022-12-13] MEDS ORDERED: BISMUTH SUBSALICYLATE 524 MG/30 ML PO PRN (01:02)
[2022-12-13] MEDS ORDERED: hydrOXYzine PAMOATE 25 MG CAPSULE (FP) PO ONE ×2 (01:11→01:21)
[2022-12-13] MEDS ORDERED: ACETAMINOPHEN 325 MG TABLET (FP) ONE (01:21)
[2022-12-13] MEDS: METHOCARBAMOL 500 MG TABLET PO PRN ×2 (02:36→22:29)
[2022-12-13] MEDS ORDERED: LORazepam 1 MG TABLET PO PRN (09:06)
[2022-12-13] MEDS ORDERED: DICYCLOMINE HCL 10 MG CAPSULE PO ONE (09:08)
[2022-12-13] MEDS ORDERED: methaDONE HCL 40 MG DISPERSABLE TABLET PO ONE (09:12)
[2022-12-13] MEDS: FAMOTIDINE 20 MG TABLET PO SCH (09:42)
[2022-12-13] MEDS: NICOTINE 14 MG/24 HOURS TOPICAL PATCH TD SCH (09:44)
[2022-12-13] MEDS: PRENATAL VITAMINS W/ FOLIC ACID TABLET (FP) PO SCH (09:44)
[2022-12-13] MEDS: LORazepam 2 MG TABLET PO SCH ×3 (10:18→22:29)
[2022-12-13 13:43] LABS: HEMATOCRIT 32.8 % (35.4-49); HEMOGLOBIN 10.8 GM/dL (11.7-16.9); MCH 28.4 pg (25.7-33.7); MEAN CELL VOLUME 86.1 fl (80-96); MEAN PLT VOLUME 10.2 fl (7.5-11.1); PLATELET COUNT 275 10^3/uL (134-434); RBC 3.81 M/mm3 (4.00-5.60); RDW 14.2 % (11.9-15.9); WHITE BLOOD COUNT 7.9 K/mm3 (4.0-10.0)
[2022-12-13] MEDS ORDERED: SUCRALFATE 1 GM TABLET (FP) PO ONE ×2 (14:00)
[2022-12-13 14:09] LABS: CALCIUM 8.6 mg/dL (8.5-10.1)
[2022-12-13 14:12] LABS: BILIRUBIN,TOTAL 0.3 mg/dL (0.2-1)
[2022-12-13 14:14] LABS: TOT PROT 6.6 g/dl (6.4-8.2)
[2022-12-13] MEDS: MELATONIN 5 MG TABLETS PO SCH (22:29)
[2022-12-13] MEDS: THIAMINE HCL 100 MG TABLET (FP) PO SCH (22:29)
[2022-12-14] MEDS: methaDONE HCL 40 MG DISPERSABLE TABLET PO SCH (05:40)
[2022-12-14] MEDS: LORazepam 1 MG TABLET PO SCH ×4 (05:41→22:59)
[2022-12-14] MEDS: NICOTINE 14 MG/24 HOURS TOPICAL PATCH TD SCH (10:15)
[2022-12-14] MEDS: PRENATAL VITAMINS W/ FOLIC ACID TABLET (FP) PO SCH (10:15)
[2022-12-14] MEDS: FAMOTIDINE 20 MG TABLET PO SCH (10:16)
[2022-12-14] MEDS: NICOTINE POLACRILEX 2 MG GUM BUC PRN (10:17)
[2022-12-14] MEDS: THIAMINE HCL 100 MG TABLET (FP) PO SCH (22:59)
[2022-12-14] MEDS: MELATONIN 5 MG TABLETS PO SCH (22:59)
[2022-12-15] MEDS: methaDONE HCL 40 MG DISPERSABLE TABLET PO SCH (05:57)
[2022-12-15] MEDS: LORazepam 0.5 MG TABLET PO SCH ×4 (05:57→22:26)
[2022-12-15] MEDS: FAMOTIDINE 20 MG TABLET PO SCH (10:34)
[2022-12-15] MEDS: PRENATAL VITAMINS W/ FOLIC ACID TABLET (FP) PO SCH (10:34)
[2022-12-15] MEDS: NICOTINE 14 MG/24 HOURS TOPICAL PATCH TD SCH (10:34)
[2022-12-15] MEDS: THIAMINE HCL 100 MG TABLET (FP) PO SCH (22:25)
[2022-12-15] MEDS: MELATONIN 5 MG TABLETS PO SCH (22:25)
[2022-12-16] MEDS ORDERED: LORazepam 0.5 MG TABLET PO ONE (05:00)
[2022-12-16] MEDS: methaDONE HCL 40 MG DISPERSABLE TABLET PO SCH (05:54)
[2022-12-16 09:27] VITALS: RESP 18
[2022-12-16] MEDS: NICOTINE 14 MG/24 HOURS TOPICAL PATCH TD SCH (10:20)
[2022-12-16] MEDS: FAMOTIDINE 20 MG TABLET PO SCH (10:20)
[2022-12-16] MEDS: NICOTINE POLACRILEX 2 MG GUM BUC PRN (10:20)
[2022-12-16] MEDS: PRENATAL VITAMINS W/ FOLIC ACID TABLET (FP) PO SCH (10:20)
[2022-12-16 13:04] VITALS: BP 114/82; PULSE 78; TEMP 97.5
== END 2022-12-16 15:26 | disposition other institution (70) | DRG 773 ==
LOC: YASAS 23:34 → UNDOADMIN 12-13 02:18 → Y6N 12-13 02:18 → UNDODISIN 12-16 15:26
PROVIDERS: ADMIT Allergy & Immunology; ATTEND Allergy & Immunology
PROC: HZ2ZZZZ Detoxification Services for Substance Abuse Treatment (ICD-10-PCS; principal; 2022-12-13)
DX: F10.230 Alcohol dependence with withdrawal, uncomplicated (principal); F14.20 Cocaine dependence, uncomplicated; F11.20 Opioid dependence, uncomplicated; F17.210 Nicotine dependence, cigarettes, uncomplicated; F19.24 Other psychoactive substance dependence with psychoactive substance-induced mood disorder; F39 Unspecified mood [affective] disorder; K21.9 Gastro-esophageal reflux disease without esophagitis
CPT/HCPCS: 36415; 80053; 85027; 86780; 87635; 87811

== ENCOUNTER 2022-12-16 15:12 | Inpatient (IN) | payer OTHER ==
[2022-12-16] MEDS ORDERED: BENZONATATE 200 MG CAPSULE PO PRN (16:03)
[2022-12-16] MEDS ORDERED: NALOXONE HCL (KLOXXADO) 8 MG SPRAY NS PRN (16:03)
[2022-12-16] MEDS ORDERED: LOPERAMIDE HCL 2 MG CAPSULE PO PRN (16:03)
[2022-12-16] MEDS ORDERED: BENZOCAINE/MENTHOL (CHLORASEPTIC ) LOZENGE MM PRN (16:03)
[2022-12-16] MEDS ORDERED: METHOCARBAMOL 500 MG TABLET PO PRN (16:03)
[2022-12-16] MEDS ORDERED: COLLOIDAL OATMEAL 1 BAR EACH TP PRN (16:03)
[2022-12-16] MEDS ORDERED: NALOXONE HCL 0.4 MG/ML VIAL IVPUSH PRN (16:03)
[2022-12-16] MEDS ORDERED: guaiFENesin 600 MG TABLET.ER (FP) PO PRN (16:03)
[2022-12-16] MEDS ORDERED: IBUPROFEN 600 MG TABLET (FP) PO PRN (16:03)
[2022-12-16] MEDS ORDERED: ACETAMINOPHEN 325 MG TABLET (FP) PO PRN (16:03)
[2022-12-16] MEDS ORDERED: IBUPROFEN 400 MG TABLET (FP) PO PRN (16:03)
[2022-12-16] MEDS ORDERED: NICOTINE 14 MG/24 HOURS TOPICAL PATCH TD PRN (16:03)
[2022-12-16] MEDS ORDERED: AMMONIUM LACTATE 12% LOTION 225 GM BOTTLE TP PRN (16:03)
[2022-12-16] MEDS ORDERED: MAGNESIUM HYDROX 2400MG/30ML ORAL SUSPENSION 30 ML CUP PO PRN (16:03)
[2022-12-16] MEDS ORDERED: MAG HYDROX/AL HYDROX/SIMETH 30 ML UNIT-DOSE CUP PO PRN (16:03)
[2022-12-16] MEDS ORDERED: POLYETHYLENE GLYCOL (HEALTHYLAX) 3350 17 GM PACKET PO PRN (16:03)
[2022-12-16] MEDS ORDERED: hydrOXYzine PAMOATE 25 MG CAPSULE (FP) PO PRN (16:03)
[2022-12-16] MEDS ORDERED: NICOTINE POLACRILEX 4 MG GUM BUC PRN (16:03)
[2022-12-16] MEDS: THIAMINE HCL 100 MG TABLET (FP) PO SCH (21:32)
[2022-12-16] MEDS: MELATONIN 5 MG TABLETS PO SCH (21:32)
[2022-12-17] MEDS ORDERED: methaDONE HCL 10 MG TABLET PO ONE (08:00)
[2022-12-17] MEDS ORDERED: methaDONE HCL 40 MG DISPERSABLE TABLET PO ONE (08:00)
[2022-12-17] MEDS ORDERED: FAMOTIDINE 20 MG TABLET PO SCH (10:00)
[2022-12-17] MEDS ORDERED: PRENATAL VITAMINS W/ FOLIC ACID TABLET (FP) PO SCH (10:00)
[2022-12-17] MEDS ORDERED: PRENATAL VITAMINS W/ FOLIC ACID TABLET (FP) PO PRN (11:38)
[2022-12-17] MEDS: THIAMINE HCL 100 MG TABLET (FP) PO SCH (21:24)
[2022-12-17] MEDS: MELATONIN 5 MG TABLETS PO SCH (21:24)
[2022-12-18] MEDS: methaDONE HCL 40 MG DISPERSABLE TABLET PO SCH (06:34)
[2022-12-18] MEDS ORDERED: LACTULOSE 20 GM/30 ML UDC (FOR ORAL USE ONLY) PO SCH (14:00)
[2022-12-18] MEDS: MELATONIN 5 MG TABLETS PO SCH (22:10)
[2022-12-18] MEDS: THIAMINE HCL 100 MG TABLET (FP) PO SCH (22:10)
[2022-12-19] MEDS: methaDONE HCL 40 MG DISPERSABLE TABLET PO SCH (06:31)
[2022-12-19] MEDS: FAMOTIDINE 10 MG TABLET PO PRN (09:07)
[2022-12-19] MEDS: FERROUS SO4 325 MG TABLET (FP) PO SCH (09:07)
[2022-12-19 13:57] LABS: HEMATOCRIT 41.3 % (35.4-49); HEMOGLOBIN 13.5 GM/dL (11.7-16.9); MCH 28.1 pg (25.7-33.7); MCHC 32.6 g/dl (32.0-35.9); MEAN CELL VOLUME 86.3 fl (80-96); MEAN PLT VOLUME 9.7 fl (7.5-11.1); PLATELET COUNT 319 10^3/uL (134-434); RBC 4.78 M/mm3 (4.00-5.60); RDW 14.1 % (11.9-15.9); WHITE BLOOD COUNT 9.2 K/mm3 (4.0-10.0)
[2022-12-19 14:24] LABS: ANISOCYTOSIS 0; MACROCYTOSIS 0
[2022-12-19] MEDS: THIAMINE HCL 100 MG TABLET (FP) PO SCH (21:35)
[2022-12-19] MEDS: MELATONIN 5 MG TABLETS PO SCH (21:35)
[2022-12-20] MEDS: methaDONE HCL 40 MG DISPERSABLE TABLET PO SCH (06:50)
[2022-12-20] MEDS: FAMOTIDINE 10 MG TABLET PO PRN (09:54)
[2022-12-20] MEDS: FERROUS SO4 325 MG TABLET (FP) PO SCH (09:54)
[2022-12-20] MEDS: LACTULOSE 20 GM/30 ML UDC (FOR ORAL USE ONLY) PO SCH ×2 (13:13→21:40)
[2022-12-20] MEDS: MELATONIN 5 MG TABLETS PO SCH (21:40)
[2022-12-20] MEDS: THIAMINE HCL 100 MG TABLET (FP) PO SCH (21:41)
[2022-12-21] MEDS: methaDONE HCL 40 MG DISPERSABLE TABLET PO SCH (06:38)
[2022-12-21] MEDS: LACTULOSE 20 GM/30 ML UDC (FOR ORAL USE ONLY) PO SCH ×3 (06:40→22:11)
[2022-12-21 07:53] VITALS: RESP 18
[2022-12-21] MEDS: FERROUS SO4 325 MG TABLET (FP) PO SCH (10:29)
[2022-12-21] MEDS: THIAMINE HCL 100 MG TABLET (FP) PO SCH (22:11)
[2022-12-21] MEDS: MELATONIN 5 MG TABLETS PO SCH (22:11)
[2022-12-22] MEDS: methaDONE HCL 40 MG DISPERSABLE TABLET PO SCH (06:22)
[2022-12-22] MEDS: LACTULOSE 20 GM/30 ML UDC (FOR ORAL USE ONLY) PO SCH ×3 (06:22→21:33)
[2022-12-22] MEDS: FERROUS SO4 325 MG TABLET (FP) PO SCH (10:05)
[2022-12-22] MEDS: MELATONIN 5 MG TABLETS PO SCH (21:33)
[2022-12-22] MEDS: THIAMINE HCL 100 MG TABLET (FP) PO SCH (21:33)
[2022-12-23] MEDS: methaDONE HCL 40 MG DISPERSABLE TABLET PO SCH (06:44)
[2022-12-23] MEDS: LACTULOSE 20 GM/30 ML UDC (FOR ORAL USE ONLY) PO SCH ×2 (06:44→14:41)
[2022-12-23 07:06] VITALS: BP 108/78; PULSE 69; TEMP 96.9
[2022-12-23] MEDS: FERROUS SO4 325 MG TABLET (FP) PO SCH (10:06)
== END 2022-12-23 17:25 | disposition home or self-care (01) | DRG 772 ==
LOC: YASAS 15:12 → Y3E 15:13
PROVIDERS: ADMIT Allergy & Immunology; ATTEND Psychiatry & Neurology Pain Medicine
PROC: HZ42ZZZ Group Counseling for Substance Abuse Treatment, Cognitive-Behavioral (ICD-10-PCS; principal; 2022-12-16)
DX: F10.20 Alcohol dependence, uncomplicated (principal); F11.20 Opioid dependence, uncomplicated; F14.20 Cocaine dependence, uncomplicated; F17.210 Nicotine dependence, cigarettes, uncomplicated; E72.20 Disorder of urea cycle metabolism, unspecified; D64.9 Anemia, unspecified; K21.9 Gastro-esophageal reflux disease without esophagitis
CPT/HCPCS: 36415; 82140; 85025; 86803

== ENCOUNTER 2023-01-20 12:40 | Inpatient (IN) | payer OTHER ==
[2023-01-20 14:00] VITALS: BMI 23.0
[2023-01-20] MEDS ORDERED: LOPERAMIDE HCL 2 MG CAPSULE PO PRN (15:18)
[2023-01-20] MEDS ORDERED: ACETAMINOPHEN 325 MG TABLET (FP) PO PRN (15:18)
[2023-01-20] MEDS ORDERED: POLYETHYLENE GLYCOL (HEALTHYLAX) 3350 17 GM PACKET PO PRN (15:18)
[2023-01-20] MEDS ORDERED: IBUPROFEN 400 MG TABLET (FP) PO PRN (15:18)
[2023-01-20] MEDS ORDERED: guaiFENesin 600 MG TABLET.ER (FP) PO PRN (15:18)
[2023-01-20] MEDS ORDERED: IBUPROFEN 600 MG TABLET (FP) PO PRN (15:18)
[2023-01-20] MEDS ORDERED: MAGNESIUM HYDROX 2400MG/30ML ORAL SUSPENSION 30 ML CUP PO PRN (15:18)
[2023-01-20] MEDS ORDERED: BENZONATATE 200 MG CAPSULE PO PRN (15:18)
[2023-01-20] MEDS ORDERED: NALOXONE HCL (KLOXXADO) 8 MG SPRAY NS PRN (15:18)
[2023-01-20] MEDS ORDERED: NALOXONE HCL 0.4 MG/ML VIAL IM PRN (15:18)
[2023-01-20] MEDS ORDERED: DICYCLOMINE HCL 10 MG CAPSULE PO PRN (15:18)
[2023-01-20] MEDS ORDERED: BISMUTH SUBSALICYLATE 524 MG/30 ML PO PRN (15:18)
[2023-01-20] MEDS ORDERED: MAG HYDROX/AL HYDROX/SIMETH 30 ML UNIT-DOSE CUP PO PRN (15:18)
[2023-01-20] MEDS ORDERED: BENZOCAINE/MENTHOL (CHLORASEPTIC ) LOZENGE MM PRN (15:18)
[2023-01-20] MEDS: ONDANSETRON *ODT* 4 MG TABLET SL PRN (15:33)
[2023-01-20] MEDS ORDERED: ONDANSETRON *ODT* 4 MG TABLET ONE (15:59)
[2023-01-20] MEDS: LORazepam 2 MG TABLET PO SCH ×2 (16:27→22:26)
[2023-01-20] MEDS ORDERED: LORazepam 2 MG TABLET ONE (16:31)
[2023-01-20] MEDS: LORazepam 1 MG TABLET PO PRN (19:44)
[2023-01-20] MEDS: MELATONIN 5 MG TABLETS PO SCH (22:25)
[2023-01-20] MEDS: THIAMINE HCL 100 MG TABLET (FP) PO SCH (22:26)
[2023-01-21] MEDS: LORazepam 1 MG TABLET PO PRN ×3 (03:16→19:26)
[2023-01-21] MEDS: LORazepam 2 MG TABLET PO SCH ×4 (05:58→22:17)
[2023-01-21] MEDS ORDERED: methaDONE HCL 10 MG TABLET PO SCH (08:45)
[2023-01-21] MEDS: PRENATAL VITAMINS W/ FOLIC ACID TABLET (FP) PO SCH (10:14)
[2023-01-21] MEDS: ONDANSETRON *ODT* 4 MG TABLET SL PRN (10:19)
[2023-01-21 12:24] LABS: HEMATOCRIT 33.8 % (35.4-49); HEMOGLOBIN 11.4 GM/dL (11.7-16.9); MCH 28.5 pg (25.7-33.7); MCHC 33.7 g/dl (32.0-35.9); MEAN CELL VOLUME 84.5 fl (80-96); PLATELET COUNT 241 10^3/uL (134-434); RDW 14.3 % (11.9-15.9); WHITE BLOOD COUNT 10.5 K/mm3 (4.0-10.0)
[2023-01-21 12:28] LABS: POTASSIUM 4.3 mmol/L (3.5-5.1)
[2023-01-21 12:44] LABS: CALCIUM 8.8 mg/dL (8.5-10.1)
[2023-01-21 12:45] LABS: ALBUMIN 3.2 g/dl (3.4-5.0); BLOOD UREA NITROGEN 12.3 mg/dL (7-18)
[2023-01-21 12:47] LABS: CREATININE 0.9 mg/dL (0.55-1.3)
[2023-01-21 12:49] LABS: BILIRUBIN,TOTAL 0.3 mg/dL (0.2-1); TOT PROT 6.6 g/dl (6.4-8.2)
[2023-01-21] MEDS: NICOTINE 21 MG/24 HOURS TOPICAL PATCH TD SCH (15:55)
[2023-01-21] MEDS: THIAMINE HCL 100 MG TABLET (FP) PO SCH (22:17)
[2023-01-21] MEDS: MELATONIN 5 MG TABLETS PO SCH (22:17)
[2023-01-22] MEDS: LORazepam 1 MG TABLET PO PRN ×3 (01:46→19:38)
[2023-01-22] MEDS: METHOCARBAMOL 500 MG TABLET PO PRN ×2 (03:02→10:37)
[2023-01-22] MEDS: hydrOXYzine PAMOATE 25 MG CAPSULE (FP) PO PRN (03:02)
[2023-01-22] MEDS: NICOTINE POLACRILEX 2 MG GUM BC PRN ×2 (03:02→18:10)
[2023-01-22] MEDS: LORazepam 1 MG TABLET PO SCH ×3 (05:02→17:32)
[2023-01-22] MEDS: PRENATAL VITAMINS W/ FOLIC ACID TABLET (FP) PO SCH (10:36)
[2023-01-22] MEDS: NICOTINE 21 MG/24 HOURS TOPICAL PATCH TD SCH (10:37)
[2023-01-22] MEDS ORDERED: METOPROLOL TARTRATE 25 MG TABLET (FP) PO ONE (20:26)
[2023-01-22] MEDS ORDERED: chlordiazePOXIDE HCL 25 MG CAPSULE PO PRN (21:41)
[2023-01-22] MEDS: chlordiazePOXIDE HCL 25 MG CAPSULE PO SCH (22:09)
[2023-01-22] MEDS: MELATONIN 5 MG TABLETS PO SCH (22:09)
[2023-01-22] MEDS: THIAMINE HCL 100 MG TABLET (FP) PO SCH (22:09)
[2023-01-23] MEDS ORDERED: LORazepam 0.5 MG TABLET PO PRN
[2023-01-23] MEDS ORDERED: LORazepam 0.5 MG TABLET PO SCH (05:00)
[2023-01-23] MEDS: chlordiazePOXIDE HCL 25 MG CAPSULE PO SCH ×2 (05:34→10:35)
[2023-01-23] MEDS: NICOTINE 21 MG/24 HOURS TOPICAL PATCH TD SCH (10:35)
[2023-01-23] MEDS: PRENATAL VITAMINS W/ FOLIC ACID TABLET (FP) PO SCH (10:35)
[2023-01-23 11:09] LABS: BASO % 0.6 % (0-2.0); EOS % 3.1 % (0-4.5); HEMATOCRIT 33.8 % (35.4-49); HEMOGLOBIN 11.6 GM/dL (11.7-16.9); MCH 28.8 pg (25.7-33.7); MCHC 34.4 g/dl (32.0-35.9); MEAN CELL VOLUME 83.6 fl (80-96); MEAN PLT VOLUME 9.8 fl (7.5-11.1); MONO % 9.7 % (3.8-10.2); NEUT % 43.6 % (42.8-82.8); PLATELET COUNT 248 10^3/uL (134-434); RBC 4.05 M/mm3 (4.00-5.60); RDW 14.2 % (11.9-15.9); WHITE BLOOD COUNT 7.4 K/mm3 (4.0-10.0)
[2023-01-23] MEDS: chlordiazePOXIDE HCL 10 MG CAPSULE PO PRN ×2 (16:19→22:18)
[2023-01-23] MEDS ORDERED: chlordiazePOXIDE HCL 10 MG CAPSULE PO ONE (18:00)
[2023-01-23] MEDS: THIAMINE HCL 100 MG TABLET (FP) PO SCH (22:17)
[2023-01-23] MEDS: METHOCARBAMOL 500 MG TABLET PO PRN (22:17)
[2023-01-23] MEDS: hydrOXYzine PAMOATE 25 MG CAPSULE (FP) PO PRN (22:17)
[2023-01-23] MEDS: MELATONIN 5 MG TABLETS PO SCH (22:19)
[2023-01-24] MEDS ORDERED: chlordiazePOXIDE HCL 25 MG CAPSULE PO SCH (05:00)
[2023-01-24] MEDS ORDERED: LORazepam 0.5 MG TABLET PO ONE (05:00)
[2023-01-24] MEDS ORDERED: chlordiazePOXIDE HCL 10 MG CAPSULE PO ONE (06:00)
[2023-01-24 09:40] VITALS: BP 122/80; PULSE 94; RESP 18; TEMP 97.8
[2023-01-24] MEDS: NICOTINE 21 MG/24 HOURS TOPICAL PATCH TD SCH (09:47)
[2023-01-24] MEDS: PRENATAL VITAMINS W/ FOLIC ACID TABLET (FP) PO SCH (09:47)
[2023-01-25] MEDS ORDERED: chlordiazePOXIDE HCL 10 MG CAPSULE PO PRN
[2023-01-25] MEDS ORDERED: chlordiazePOXIDE HCL 10 MG CAPSULE PO SCH (05:00)
[2023-01-26] MEDS ORDERED: chlordiazePOXIDE HCL 10 MG CAPSULE PO SCH (05:00)
[2023-01-27] MEDS ORDERED: chlordiazePOXIDE HCL 10 MG CAPSULE PO ONE (05:00)
== END 2023-01-24 09:37 | disposition home or self-care (01) | DRG 773 ==
LOC: YASAS 12:40 → Y6N 15:33
PROVIDERS: ADMIT Allergy & Immunology; ATTEND Surgery
PROC: HZ2ZZZZ Detoxification Services for Substance Abuse Treatment (ICD-10-PCS; principal; 2023-01-20)
DX: F10.230 Alcohol dependence with withdrawal, uncomplicated (principal); F11.20 Opioid dependence, uncomplicated; F14.20 Cocaine dependence, uncomplicated; F13.20 Sedative, hypnotic or anxiolytic dependence, uncomplicated; F17.210 Nicotine dependence, cigarettes, uncomplicated; F31.9 Bipolar disorder, unspecified; F19.282 Other psychoactive substance dependence with psychoactive substance-induced sleep disorder; Z86.69 Personal history of other diseases of the nervous system and sense organs; Z56.0 Unemployment, unspecified; Z59.00 Homelessness unspecified
CPT/HCPCS: 36415; 80053; 85025; 85027; 86780; 87635; 93005; 93010; Q0162

== ENCOUNTER 2023-07-24 14:25 | Inpatient (IN) | payer OTHER ==
[2023-07-24 15:47] VITALS: BMI 26.0
[2023-07-24] MEDS ORDERED: DICYCLOMINE HCL 10 MG CAPSULE PO PRN (18:21)
[2023-07-24] MEDS ORDERED: IBUPROFEN 600 MG TABLET (FP) PO PRN (18:21)
[2023-07-24] MEDS ORDERED: MAGNESIUM HYDROX 2400MG/30ML ORAL SUSPENSION 30 ML CUP PO PRN (18:21)
[2023-07-24] MEDS ORDERED: ACETAMINOPHEN 325 MG TABLET (FP) PO PRN (18:21)
[2023-07-24] MEDS ORDERED: MAG HYDROX/AL HYDROX/SIMETH 30 ML UNIT-DOSE CUP PO PRN (18:21)
[2023-07-24] MEDS ORDERED: LOPERAMIDE HCL 2 MG CAPSULE PO PRN (18:21)
[2023-07-24] MEDS ORDERED: POLYETHYLENE GLYCOL (HEALTHYLAX) 3350 17 GM PACKET PO PRN (18:21)
[2023-07-24] MEDS ORDERED: BENZOCAINE/MENTHOL (CHLORASEPTIC ) LOZENGE MM PRN (18:21)
[2023-07-24] MEDS ORDERED: BISMUTH SUBSALICYLATE 524 MG/30 ML PO PRN (18:21)
[2023-07-24] MEDS ORDERED: IBUPROFEN 400 MG TABLET (FP) PO PRN (18:21)
[2023-07-24] MEDS ORDERED: guaiFENesin 600 MG TABLET.ER (FP) PO PRN (18:21)
[2023-07-24] MEDS ORDERED: BENZONATATE 200 MG CAPSULE PO PRN (18:21)
[2023-07-24] MEDS ORDERED: NALOXONE HCL 0.4 MG/ML VIAL IM PRN (18:21)
[2023-07-24] MEDS ORDERED: ONDANSETRON *ODT* 4 MG TABLET SL PRN (18:21)
[2023-07-24] MEDS ORDERED: DOCUSATE SODIUM 100 MG CAPSULE (FP) PO PRN (18:21)
[2023-07-24] MEDS ORDERED: NALOXONE HCL (KLOXXADO) 8 MG SPRAY NS PRN (18:21)
[2023-07-24] MEDS: THIAMINE HCL 100 MG TABLET (FP) PO SCH (22:58)
[2023-07-24] MEDS: MELATONIN 5 MG TABLETS PO SCH (22:58)
[2023-07-25] MEDS ORDERED: methaDONE HCL 10 MG TABLET PO SCH (09:30)
[2023-07-25] MEDS: PRENATAL VITAMINS W/ FOLIC ACID TABLET (FP) PO SCH (09:48)
[2023-07-25] MEDS: methaDONE 80 MG, methaDONE 20 MG PO SCH (09:49)
[2023-07-25] MEDS: NICOTINE POLACRILEX 2 MG GUM BUC PRN (09:53)
[2023-07-25] MEDS: diazePAM 5 MG TABLET PO SCH (10:30)
[2023-07-25 11:57] LABS: HEMATOCRIT 35.1 % (35.4-49); HEMOGLOBIN 11.4 GM/dL (11.7-16.9); MCH 28.8 pg (25.7-33.7); MCHC 32.5 g/dl (32.0-35.9); MEAN CELL VOLUME 88.6 fl (80-96); PLATELET COUNT 239 10^3/uL (134-434); RBC 3.96 M/mm3 (4.00-5.60); WHITE BLOOD COUNT 7.3 K/mm3 (4.0-10.0)
[2023-07-25 12:02] LABS: POTASSIUM 3.9 mmol/L (3.5-5.1)
[2023-07-25 12:07] LABS: CALCIUM 8.6 mg/dL (8.5-10.1)
[2023-07-25 12:08] LABS: ALBUMIN 3.1 g/dl (3.4-5.0); BLOOD UREA NITROGEN 17.1 mg/dL (7-18)
[2023-07-25 12:10] LABS: BILIRUBIN,TOTAL 0.2 mg/dL (0.2-1)
[2023-07-25 12:11] LABS: CREATININE 1.1 mg/dL (0.55-1.3)
[2023-07-26] MEDS: diazePAM 5 MG TABLET PO PRN (15:10)
[2023-07-27] MEDS: diazePAM 5 MG TABLET PO SCH (05:39)
[2023-07-28] MEDS: diazePAM 5 MG TABLET PO SCH (06:02)
[2023-07-28] MEDS: METHOCARBAMOL 500 MG TABLET PO PRN (22:05)
[2023-07-29] MEDS: diazePAM 5 MG TABLET PO ONE (05:48)
[2023-07-29 06:56] VITALS: BP 106/70; PULSE 80; RESP 16; TEMP 97.3
== END 2023-07-29 09:50 | disposition other institution (70) | DRG 773 ==
LOC: YASAS 14:25 → Y6N 18:12
PROVIDERS: ADMIT Allergy & Immunology; ATTEND Surgery
PROC: HZ2ZZZZ Detoxification Services for Substance Abuse Treatment (ICD-10-PCS; principal; 2023-07-24)
DX: F13.230 Sedative, hypnotic or anxiolytic dependence with withdrawal, uncomplicated (principal); F11.20 Opioid dependence, uncomplicated; F14.20 Cocaine dependence, uncomplicated; F12.10 Cannabis abuse, uncomplicated; F17.210 Nicotine dependence, cigarettes, uncomplicated
CPT/HCPCS: 36415; 80053; 80305; 85027; 86780

== ENCOUNTER 2023-10-30 16:53 | Inpatient (IN) | payer OTHER ==
[2023-10-30 20:00] VITALS: BMI 26.2
[2023-10-30] MEDS ORDERED: POLYETHYLENE GLYCOL (HEALTHYLAX) 3350 17 GM PACKET PO PRN (20:55)
[2023-10-30] MEDS ORDERED: NALOXONE (NARCAN) HCL 4 MG/0.1 ML SPRAY NS PRN (20:55)
[2023-10-30] MEDS ORDERED: DICYCLOMINE HCL 10 MG CAPSULE PO PRN (20:55)
[2023-10-30] MEDS ORDERED: LOPERAMIDE HCL 2 MG CAPSULE PO PRN (20:55)
[2023-10-30] MEDS ORDERED: IBUPROFEN 400 MG TABLET (FP) PO PRN (20:55)
[2023-10-30] MEDS ORDERED: ACETAMINOPHEN 325 MG TABLET (FP) PO PRN (20:55)
[2023-10-30] MEDS ORDERED: MAG HYDROX/AL HYDROX/SIMETH 30 ML UNIT-DOSE CUP PO PRN (20:55)
[2023-10-30] MEDS ORDERED: guaiFENesin 600 MG TABLET.ER (FP) PO PRN (20:55)
[2023-10-30] MEDS ORDERED: NALOXONE HCL 0.4 MG/ML VIAL IM PRN (20:55)
[2023-10-30] MEDS ORDERED: MAGNESIUM HYDROX 2400MG/30ML ORAL SUSPENSION 30 ML CUP PO PRN (20:55)
[2023-10-30] MEDS ORDERED: BENZONATATE 200 MG CAPSULE PO PRN (20:55)
[2023-10-30] MEDS ORDERED: BENZOCAINE/MENTHOL (CHLORASEPTIC ) LOZENGE MM PRN (20:55)
[2023-10-30] MEDS ORDERED: ONDANSETRON *ODT* 4 MG TABLET SL PRN (20:55)
[2023-10-30] MEDS ORDERED: P-EPHED 60MG/TRIPROLIDI 2.5MG TABLET PO PRN (20:55)
[2023-10-30] MEDS ORDERED: IBUPROFEN 600 MG TABLET (FP) PO PRN (20:55)
[2023-10-30] MEDS ORDERED: BISMUTH SUBSALICYLATE 524 MG/30 ML PO PRN (20:55)
[2023-10-30] MEDS: MELATONIN 5 MG TABLETS PO SCH (23:04)
[2023-10-30] MEDS: THIAMINE 100 MG TABLET PO SCH (23:04)
[2023-10-31] MEDS ORDERED: methaDONE HCL 10 MG TABLET PO SCH (09:15)
[2023-10-31] MEDS: PRENATAL VITAMINS W/ FOLIC ACID TABLET (FP) PO SCH (09:37)
[2023-10-31] MEDS: methaDONE 80 MG, methaDONE 10 MG PO ONE (09:37)
[2023-10-31] MEDS: diazePAM 5 MG TABLET PO SCH (10:15)
[2023-10-31] MEDS: NICOTINE POLACRILEX 2 MG GUM BUC PRN (10:45)
[2023-10-31] MEDS: diazePAM 5 MG TABLET PO PRN (12:52)
[2023-10-31] MEDS: cloNIDine HCL 0.1 MG TABLET PO PRN (13:47)
[2023-10-31 14:43] LABS: HEMATOCRIT 36.1 % (35.4-49); HEMOGLOBIN 12.2 GM/dL (11.7-16.9); MCH 28.8 pg (25.7-33.7); MCHC 33.8 g/dl (32.0-35.9); MEAN CELL VOLUME 85.2 fl (80-96); PLATELET COUNT 321 10^3/uL (134-434); RBC 4.24 M/mm3 (4.00-5.60); RDW 13.3 % (11.9-15.9); WHITE BLOOD COUNT 8.9 K/mm3 (4.0-10.0)
[2023-10-31 15:00] LABS: POTASSIUM 3.6 mmol/L (3.5-5.1)
[2023-10-31 15:07] LABS: CALCIUM 9.1 mg/dL (8.5-10.1)
[2023-10-31 15:08] LABS: ALBUMIN 3.6 g/dl (3.4-5.0); BLOOD UREA NITROGEN 13.4 mg/dL (7-18)
[2023-10-31 15:11] LABS: BILIRUBIN,TOTAL 0.3 mg/dL (0.2-1); CREATININE 1.1 mg/dL (0.55-1.3); TOT PROT 6.8 g/dl (6.4-8.2)
[2023-11-01] MEDS: methaDONE 80 MG, methaDONE 10 MG PO SCH (06:12)
[2023-11-02] MEDS: diazePAM 5 MG TABLET PO SCH (06:04)
[2023-11-02] MEDS: METHOCARBAMOL 500 MG TABLET PO PRN (21:52)
[2023-11-03] MEDS: diazePAM 5 MG TABLET PO SCH (05:59)
[2023-11-03] MEDS: NICOTINE POLACRILEX 2 MG LOZENGE BC PRN (09:17)
[2023-11-03 20:46] VITALS: RESP 16
[2023-11-04] MEDS: diazePAM 5 MG TABLET PO ONE (05:58)
[2023-11-04 06:05] VITALS: TEMP 97.8
[2023-11-04 09:19] VITALS: BP 123/75; PULSE 75
== END 2023-11-04 09:31 | disposition home or self-care (01) | DRG 773 ==
LOC: YASAS 16:53 → Y3N 23:08
PROVIDERS: ADMIT Allergy & Immunology; ATTEND Surgery
PROC: HZ2ZZZZ Detoxification Services for Substance Abuse Treatment (ICD-10-PCS; principal; 2023-10-30)
DX: F10.230 Alcohol dependence with withdrawal, uncomplicated (principal); F11.20 Opioid dependence, uncomplicated; F14.20 Cocaine dependence, uncomplicated; F13.20 Sedative, hypnotic or anxiolytic dependence, uncomplicated; F17.210 Nicotine dependence, cigarettes, uncomplicated
CPT/HCPCS: 36415; 80053; 80305; 80307; 85027; 86780